=== PATIENT | male | born 1970 | race Caucasian/White ===

== ENCOUNTER 2024-04-26 11:27 | Emergency (ER) | payer OTHER, SELFPAY ==
[2024-04-26 12:02] VITALS: BP 131/82; PULSE 78; RESP 18; TEMP 36.3; O2SAT 97
--- OUTSIDE RECORDS SUMMARY | 2024-04-26 12:06 | XMS_ITS | Encounter Summary ---
Author Organization [facility] Address [address] [place] [address]. [place] [address] [place] [address] Care Team Providers Care Tyre Fitter Name Role Phone Terese Hathaway Primary Care Provider [phone] Vale Salmon RADIO PERFORMER- Primary Care Provider + Korin Monteiro MD Primary Care Provider [phone] IngridMilo Grady MD Primary Care Prov ider Encounter Details Date Type Department Care Team (Late st Contact Info) Description 03/11/2022 [employer] Message Enc [facility] Health Information Services [address] [place] [address] Aleah, [facility] Provider Pt Amendment Request Social History Tobacco Use Types Packs/Day Years Used Date Smoking Tobacco: Former Cigarettes Smokeless Tobacco: Never Alcohol Use Standard Drinks/Week Comments Yes 10 (1 standard drink = 0.6 oz pu re alcohol) occasional AUDIT-C Answer Date Recorded Frequency of Alcohol Consumption 2-3 times a wee k 03/04/2018 Average Number of Drinks 3 or 4 018 Frequency of Binge Drinking Not on file 02/20 PHQ-2 Answer Date Recorded PHQ-2 Score - If the patient scores above 3, please move on to questions 3-9 0 11/01/2021 Education Answer Date Recorded What is the highest level of school you have completed or the highest degree you have received? High school graduate 03/04/2018 Sex and Gender Information Value Date Recorded Sex Assigned at Male 03/04/2018 2:26 PM THERAPEUTIC ASSISTANT Legal Sex Male 4:33 PM CDT Gender Identity Male 03/04/2018 2:26 PM THERAPEUTIC ASSISTANT Sexual Orientation Straight 03/04/2018 2: 26 PM THERAPEUTIC ASSISTANT COVID-19 Exposure Response Date Recorded In the last 10 days, have yo u been in contact with someone who was confirmed or suspected to have Coronavirus/COVID-19? No / Unsure 03/03/2022 1:16 PM THERAPEUTIC ASSISTANT documented as of this encounter Plan of Treatment Upcoming Encounters Date Type Department Care Team (Late st Contact Info) Description 04/28/2024 7:20 AM THERAPEUTIC ASSISTANT Office Visit [facility] Family Medicine - [place] [address] [facility], [address] [place] [phone] Ingrid VIIMilo MD [facility], [address] [address] documented as of this encounter Visit Diagnoses Not on filedocumented in this encounter Additional Health Concerns Infection Onset Date Last Indicated Resolved Time COVID-19 Rule Out 12/10/2023 12/10/2023 12/10/2023 11:34 AM CDT Assessment Noted Time PHQ-9 Depression Total Score: 1 10/03/19 22 4:03 PM CDT documented as of this encounter Care Teams Tyre Fitter Relationship Specialty Start [place] [address] [place] [address] PCP - General PHYSICIAN SOD CUTTER 02/01/20 10/05/22 Vale Salmon, RADIO PERFORMER- [address], [address] [place] [address] PCP - General 10/06/22 02/09/23 [place] [address] [address], [address] [place], [place] [id number] PCP - General FAMILY PRACTICE 02/10/23 01/26/24 Ingrid SOPHIE, Milo Parada MD [address] [place] [address] PCP - General FAMILY PRACTICE 01/27/24 documented as of this encounter
--- OUTSIDE RECORDS SUMMARY | 2024-04-26 12:06 | XMS_ITS | Referral Summary ---
Author Organization [facility] Address [address] [place] [address] Care Team Providers Care Radiology Equipment Servicer Name Role Phone Johnnie Chun MD Primary Care Provider + Source Comments [facility],non-owned Affiliates and Associated Physician Practices is amultiple site organization consisting of ambulatory clinics and hospital sitesin [place], [place], [place] and [place]. This disclosure is being madepursuant to the Care Everywhere program and may not contain all information available regarding this patient. Last updated 17.[facility] Allergies No known active allergies Medications * Be aware that medications may not be up to date on this document. Alwaysverify current medications with the patient. Medication Sig Dispensed Refills Start Date End Date Status levocetirizine (XYZAL) 5 MG tablet Take 1 tablet by mouth once daily 30 tablet 2 12/23/2017 Active Social History Tobacco Use Types Packs/Day Years Used Date Smoking Tobacco: Never Smokeless Tobacco: Never Sex and Gender Information Value Date Recorded Sex Assigned at Not on file Gender Identity Not on file Sexual Orientation Not on file Last Filed Vital Signs Vital Sign Reading Time Taken Comments Blood Pressure 128/84 12/23/2017 9:41 AM CDT Pulse 79 12/23/2017 9:41 AM CDT Temperature 36.9 ??C (98.5 ??F) 12/23/2017 9:41 AM CD T Respiratory Rate 16 03/04/2017 6:43 PM NEWSPAPER LIBRARY MANAGER Oxygen Saturation 98% 12/23/2017 9:41 AM CDT Inhaled Oxygen Concentration - - Weight 113 kg (249 lb 1.6 oz) 12/23/2017 9:41 AM CDT Height 185.4 cm (6' 1 ) 12/23/2017 9:41 AM CDT Body Mass Index 32.86 12/23/2017 9:41 AM CDT Plan of Treatment Not on file Care Teams Radiology Equipment Servicer Relationship Specialty Start Date End Date Johnnie Chun MD PCP - General Internal Medicine 03/04/17
--- OUTSIDE RECORDS SUMMARY | 2024-04-26 12:06 | XMS_ITS | Continuity of Care Document ---
Author Organization [facility] Address [address] [place] [address] Phone Care Team Providers Care Rim Technician Name Role Phone Nuno Whitmore MD Unavailable Unavailabl e Allergies, Adverse Reactions, Alerts Substance Reaction Status Criticality No Known Allergies Active No Inform ation Medications Medication Instructions Dosage Effective Dates (start - stop) Status Comments cephalexin 500 mg capsule take 2 capsules by oral route 1 hour prior to procedure - Active lisinopril 10 mg tablet take 1 tablet by oral route every day 10 MG - Active hydrochlorothiazide 12.5 mg tablet take 1 tablet by oral route every day 12.5 MG - Active DIAZEPAM (unknown strength) Not Available - Active Procedures Procedure Date X-RAY HIP UNI W PELVIS 2-3 VIEWS 2022 OFFICE/OUTPATIENT VISIT EST X-RAY HIP UNI W PELVIS 2-3 VIEWS 2022 POSTOP FOLLOW-UP VISIT POSTOP FOLLOW-UP VISIT RADEX KNE 1/2 VIEWS X-RAY HIP UNI W PELVIS 2-3 VIEWS 2022 TOTAL HIP ARTHROPLASTY X-RAY HIP UNI W PELVIS 2-3 VIEWS 2022 OFFICE/OUTPATIENT VISIT NEW Advance Directives Directive Yes / No Effective Date File Name No Information Encounters Encounter Description Practice Location Reason(s) For Visit Diagnoses Date Provider Providers Copied on Encounter [facility], [address], [place], [address], [place] tel:[phone] [facility] No Information Dec-1 5-202 3 L'Hommedieu Seneca. [address], [place], [place], [id number]. tel:[phone] OFFICE/OUTPA TIENT VISIT EST [facility], [address] [facility] [address] [place] [address], [place], [address], [place] tel:[phone] [facility] Status post total replacement of left hip Nov- 3 L'Hommedieu Seneca. [address], [place], [place], [id number]. tel:[phone] Referring Provider: Terese Mi, [address], [place], [address] . tel:[phone] [facility], [address] [place] [place] [address], [place], [address], [place] tel:[phone] [facility] Status post total replacement of left hip Rogers- 3 L[address]Hommed[address] [place]. [address] , [place], [place], [address]. tel:[phone] Referring Provider: Terese Mi, [address], [place], [address] . tel:[phone] [facility], [address] [place] [place] [address], [place], [address], [place] tel:[phone] [facility] Status post total replacement of left hipBody mass index [BMI] 34.0-34.9, adult [address]. [address], [place], [place], [id number], [place]. tel:[phone] Referring Provider: Terese Mi, [address], [place], [address] . tel:[phone] [facility], [address] [facility] [address], [place], [address], [place] tel:[phone] [facility] Status post total replacement of left hipUnilateral primary osteoarthritis , left hipCongenital dysplasia of hip 3 No Information Referring Provider: Nuno vásquez, [address], [place], [address] . tel:[phone] [facility], [address], [place], [address], [place] tel:[phone] [facility] Primary osteoarthritis of left hipStatus post total replacement of left hip 3 Haim Reina. [address], [place], [place], [address]. tel:[phone] OFFICE/OUTPA TIENT VISIT NEW [facility], [address] [facility] [address] [facility] [address], [place], [address], [place] tel:[phone] [facility] Body mass index [BMI] 34.0-34.9, adultPain in left hipPrimary osteoarthritis of left hip 3 Haim Reina. [address], [place], [place], [address]. tel:[phone] Family History Family Member Type Diagnosis Age At Onset Mother Problem Hypertension Father Problem Cancer, prostate Payers Payer name Insurance type Covered green party ID Authoriza tion(s) No Information Social History Type Description Quantity Date Captured Comments Alcohol Use Details Unknown Caffeine Use Details Unknown Tobacco Use Status No Information Smoking Status No Information Sex Male Chief Complaint And Reason For Visit No Information Reason For Referral Reason For Referral No Information Plan Of Treatment Date Type Action Status Referral Ordered: X-RAY HIP UNI W PELVIS 2-3 VIEWS LT ordered Referral Ordered: RADEX KNE 1/2 VIEWS LT ordered Referral Ordered: ELECTROCARDIOGRAM COMPLETE ordered Referral Ordered: X-RAY EXAM CHEST 2 VIEWS ordered Referral Ordered: X-RAY HIP UNI W PELVIS 2-3 VIEWS LT hip ordered Future Order: Lab Order CBC With Differential/Platelet ([id number]), Ordered on: Ordered Future Order: Lab Order Comp. Me tabolic Panel ([id number]), Ordered on: Ordered Future Order: Lab Order PT and P TT ([id number]), Ordered on: Ordered History Of Present Illness Encounter Date Complaint History Of Prese nt Illness No Information Functional Status Date Functional Assessmen t No Information Instructions Date Instruction Additional Infor mation Giving encouragement to exercise Related to Body mass index [BMI] 34.0-34.9, adult Giving encouragement to exercise Related to Body mass index [BMI] 34.0-34.9, adult Assessments Type Assessment Date No Information Patient Care Teams Name Effective Dates (start - stop) Status Members No Information
--- OUTSIDE RECORDS SUMMARY | 2024-04-26 12:06 | XMS_ITS | Encounter Summary ---
Author Organization [facility] Address [facility] [facility] [place] [address] [place] [address] Care Team Providers Care Centura Technical Lead Senior Developer Name Role Phone Terese Hathaway Primary Care Provider [phone] Vale SalmonP- Primary Care Provider + Korin Monteiro MD Primary Care Provider [phone] IngridMilo Grady MD Primary Care Prov ider Encounter Details Date Type Department Care Team (Late st Contact Info) Description 08/27/2021 [employer] Message Enc [facility] Family & Internal Medicine [address] [phone] Aleah, [facility] Provider Appointment Social History Tobacco Use Types Packs/Day Years Used Date Smoking Tobacco: Former Cigarettes Smokeless Tobacco: Never Alcohol Use Standard Drinks/Week Comments Yes 0 (1 standard drink = 0.6 oz pur e alcohol) occasional AUDIT-C Answer Date Recorded Frequency of Alcohol Consumption 2-3 times a wee k 03/04/2018 Average Number of Drinks 3 or 4 018 Frequency of Binge Drinking Not on file 02/20 PHQ-2 Answer Date Recorded PHQ-2 Score - If the patient scores above 3, please move on to questions 3-9 0 01/30/2020 Education Answer Date Recorded What is the highest level of school you have completed or the highest degree you have received? High school graduate 03/04/2018 Sex and Gender Information Value Date Recorded Sex Assigned at Male 03/04/2018 2:26 PM LEASING AGENT Legal Sex Male 4:33 PM CDT Gender Identity Male 03/04/2018 2:26 PM LEASING AGENT Sexual Orientation Straight 03/04/2018 2: 26 PM LEASING AGENT documented as of this encounter Plan of Treatment Upcoming Encounters Date Type Department Care Team (Late st Contact Info) Description 04/28/2024 7:20 AM LEASING AGENT Office Visit [facility] Family Medicine - [address], [address] [place] [phone] Milo Negro MD [address] [place] [address] documented as of this encounter Visit Diagnoses Not on filedocumented in this encounter Additional Health Concerns Infection Onset Date Last Indicated Resolved Time COVID-19 Rule Out 12/10/2023 12/10/2023 12/10/2023 11:34 AM CDT documented as of this encounter Care Teams Centura Technical Lead Senior Developer Relationship Specialty Start [place] [address] [place] [address] PCP - General PHYSICIAN AIR TUCKER 02/01/20 10/05/22 Vale Salmon, [facility]- [address] [address], [address] [address] PCP - General 10/06/22 02/09/23 [place] [address] [address], [address] [address] PCP - General FAMILY PRACTICE 02/10/23 01/26/24 Milo Negro MD [address] [place] [address], [address] [address] PCP - General FAMILY PRACTICE 01/27/24 documented as of this encounter
--- OUTSIDE RECORDS SUMMARY | 2024-04-26 12:06 | XMS_ITS | Encounter Summary ---
Author Organization [facility] Address [address] [place] [address]. [place] [address] [place] [address] Care Team Providers Care High School Business Teacher Name Role Phone Korin Monteiro MD Primary Care Provider [phone] Ingrid Milo BARRIOS MD Primary Care Prov ider Reason for Referral * Surgical (Routine) - Closed Specialty Diagnoses / Procedures Referred By María amaya Referred To Contact GENERAL SURGERY Diagnoses Encounter for screening for malignant neoplasm of colon Procedures Case request operating room: COLONOSCOPY Jens Cardona DO [address] [place] [address] Phone: tel: fax: Referral ID Status Reason Start Date Expiration Date Visits Re quested Visits Authorized [id number] Closed 06/04/2023 06/03/2024 1 1 Encounter Details Date Type Department Care Team (Late st Contact Info) Description 06/04/2023 Prep for Procedure [facility] General Surgery - [place] [address], [address] [place] [address] Jens Cardona DO [address] [place] [address] Social History Tobacco Use Types Packs/Day Years Used Date Smoking Tobacco: Former Cigarettes Passive Smoke Exposure: Past Smokeless Tobacco: Never Comments:Former smoker; smok ed in high school less than 1/2 ppd Alcohol Use Standard Drinks/Week Comments Yes 5 (1 standard drink = 0.6 oz pur e alcohol) once weekly AUDIT-C Answer Date Recorded Frequency of Alcohol Consumption 2-3 times a wee k 03/04/2018 Average Number of Drinks 3 or 4 018 Frequency of Binge Drinking Not on file 02/20 PHQ-2 Answer Date Recorded Patient Health Questionnaire-2 Score 0 04/17/2023 Education Answer Date Recorded What is the highest level of school you have completed or the highest degree you have received? High school graduate 03/04/2018 Sex and Gender Information Value Date Recorded Sex Assigned at Male 03/04/2018 2:26 PM UPSETTER SETTER UP Legal Sex Male 4:33 PM CDT Gender Identity Male 03/04/2018 2:26 PM UPSETTER SETTER UP Sexual Orientation Straight 03/04/2018 2: 26 PM UPSETTER SETTER UP documented as of this encounter Plan of Treatment Upcoming Encounters Date Type Department Care Team (Late st Contact Info) Description 04/28/2024 7:20 AM UPSETTER SETTER UP Office Visit [facility] Family Medicine [address], [address] [phone] Ingrid VII, Milo Parada MD [address] [place] [address], [address] [address] Scheduled Orders Name Type Priority Associated Diagnoses Orde r Schedule Case request operating room: COLONOSCOPY Case Request Routine Encounter for screening for malignant neoplasm of colon Once for 1 Occurrences starting 07/29/2023 until 07/29/2023 documented as of this encounter Visit Diagnoses Diagnosis Encounter for screening for malignant neoplasm of colon- Primary Special screening for malignant neoplasms, colon documented in this encounter Additional Health Concerns Infection Onset Date Last Indicated Resolved Time COVID-19 Rule Out 12/10/2023 12/10/2023 12/10/2023 11:34 AM CDT Assessment Noted Time PHQ-9 Depression Total Score: 0 04/17/19 24 11:51 AM UPSETTER SETTER UP documented as of this encounter Care Teams High School Business Teacher Relationship Specialty Start Date End Date Korin Monteiro MD PCP - General FAMILY PRACTICE 02/10/23 01/26/24 Milo Negro MD [address] [place], [place] [address] PCP - General FAMILY PRACTICE 01/27/24 documented as of this encounter
--- OUTSIDE RECORDS SUMMARY | 2024-04-26 12:06 | XMS_ITS | Patient Health Summary ---
Author Organization [facility] Address [address] [place] [address] Care Team Providers Care Senior Designer Name Role Phone Johnnie Chun MD Primary Care Provider + Note from [facility],non-owned Affiliates and Associated Physician Practices is amultiple site organization consisting of ambulatory clinics and hospital sitesin [place], [place], [place] and [place]. This disclosure is being madepursuant to the Care Everywhere program and may not contain all information available regarding this patient. Last updated 17.[facility] Allergies No known active allergies Medications * Be aware that medications may not be up to date on this document. Alwaysverify current medications with the patient. * levocetirizine (XYZAL) 5 MG tablet(Started 12/23/2017) Take 1 tablet by mouth once daily 2 refills remaining Social History Tobacco Use Types Packs/Day Years [...] T Respiratory Rate 16 03/04/2017 6:43 PM COMMUNITY SERVICE MANAGER Oxygen Saturation 98% 12/23/2017 9:41 AM CDT Inhaled Oxygen Concentration - - Weight 113 kg (249 lb 1.6 oz) 12/23/2017 9:41 AM CDT Height 185.4 cm (6' 1 ) 12/23/2017 9:41 AM CDT Body Mass Index 32.86 12/23/2017 9:41 AM CDT Procedures * STREP A SCREEN - POINT OF CARE (AMB) STL(Performed 03/04/2017) Performed for Acute pharyngitis, unspecified etiology Results * STREP A SCREEN (03/04/2017) Strep A Rapid POCT Negative Negative Strep A Internal Control Present Lot # [id number] Expiration Date [id number] Throat ENTIRE THROAT (SURFACE REGION OF NECK) / Unknown 03/04/2017 Thomas Phelan PAINT MAKER-RUBBER PRINTING MACHINE OPERATOR LAB - POINT OF CARE ORDERABLES Care Teams Senior Designer Relationship Specialty Start Date End Date Johnnie Chun MD PCP - General Internal Medicine 03/04/17
--- OUTSIDE RECORDS SUMMARY | 2024-04-26 12:06 | XMS_ITS | Clinical Summary ---
Author Organization [facility] Medical Office Building Address [address] [place] [address] Care Team Providers Care Director International Name Role Phone Ananth Alvarado MD Unavailable [phone] Korin Monteiro MD Primary Care Provider [phone] Allergies No known active allergies Medications cholecalciferol (VITAMIN D-3) 25 mcg (1,000 unit) tabletIndicatio ns:Vitamin D Deficiency,supp lement Take 2 tablets (2,000 Units total) by mouth every morning Active hydroCHLOROthia zide (HYDRODIURIL) 12.5 mg tabletIndicatio ns:hypertension Take 1 tablet (12.5 mg total) by mouth every morning 2 Active lisinopriL (PRINIVIL,ZESTR IL) 10 mg tabletIndicatio ns:hypertension Take 1 tablet (10 mg total) by mouth every morning 2 Active acetaminophen (TYLENOL) 500 mg tablet Take 1,000 mg by mouth every 6 (six) hours as needed for pain Active ibuprofen (ADVIL,MOTRIN) 200 mg tab/cap Take 3 tablet/capsule (600 mg total) by mouth every 8 (eight) hours as needed for pain Active HYDROcodone-eric taminophen (NORCO) 5-325 mg per tabletIndicatio ns:Pain Take 1 tablet by mouth every 6 (six) hours as needed for pain 15 tablet 2 Active cyclobenzaprine (FLEXERIL) 5 mg tablet Take 5 mg by mouth 2 (two) times a day as needed for muscle spasms [address] (VOLTAREN) 75 mg EC tabletIndicatio ns:Osteoarthrit is,Tendonitis,f charissa Take 1 tablet (75 mg total) by mouth 2 (two) times a day 2 Active clobetasoL (TEMOVATE) 0.05 % cream as needed 3 Active diazePAM (VALIUM) 10 mg tablet 3 Active HYDROcodone-eric taminophen (NORCO) 5-325 mg per tabletIndicatio ns:Pain Take 1 tablet by mouth every 6 (six) hours as needed for pain 15 tablet 3 Active ofloxacin (FLOXIN) 0.3 % otic solution Administer 5 drops into the right ear daily 5 mL 2 3 Active tiZANidine (ZANAFLEX) 2 mg tablet 3 Active semaglutide (WEGOVY) 0.25 mg/0.5 mL auto-injector Inject 0.5 mL (0.25 mg total) under the skin once a week 3 Active oxyCODONE-aceta minophen (PERCOCET) 5-325 mg per tablet 3 Active aspirin 325 mg enteric coated tablet 3 Active buPROPion XL (WELLBUTRIN XL) 150 mg 24 hr tablet SIG one po qam. If tolerating, may increase to 2 pills (300mg) po qam after 2-4 weeks 4 Active naltrexone (DEPADE) 50 mg tablet SI/2 pill (25mg) po qam with the wellbutrin 4 Active Lomaira 8 mg tablet 1 4 Active ciprofloxacin-d exAMETHasone (CIPRODEX) otic suspension Administer 4 drops into the right ear 2 (two) times a day 7.5 mL 3 4 Active amoxicillin (AMOXIL) 875 mg tablet 4 Active methylPREDNISol one (MEDROL DOSEPACK) 4 mg Dosepack 4 Active Active Problems Problem Noted Date Diagnosed Date Congenital dysplasia of hip 01/28/2023 Surgical History Surgery Date Site/Laterality Comments TYMPANOPLASTY 03/23/1999 - 03/22/2000 Right MYRINGOTOMY W/ TUBES 03/23/1974 - 03/22/1975 Right multiple tubes since 4 years old TONSILLECTOMY AND ADENOIDECTOMY childhood EAR SURGERY 12/21/2021 - 01/20/2022 Right Medical History Medical History Date Comments Allergic rhinitis Hypertension Sleep apnea Family History Medical History Relation Name Comments Cancer Father Roger Bone Anesthesia problems Neg Hx Relation Name Status Comments Father Roger Bone Alive Mother Alive Social History Tobacco Use Types Packs/Day Years Used Date Smoking Tobacco: Never Smokeless Tobacco: Never AUDIT-C Answer Date Recorded Q1: How often do you have a drink containing alc ohol? 2-3 times a week 06/20/2022 Q2: How many drinks containi ng alcohol do you have on a typical day when you are drinking? 1 or 2 06/20/2022 Q3: How often do you have si x or more drinks on one occasion? Never 06/20/2022 Personal Safety Answer Date Recorded Have you ever been in or are you currently in a harmful physical or emotional relationship or is someone making you feel afraid or unsafe? Denies 06/20/2022 Sex and Gender Information Value Date Recorded Sex Assigned at Not on file Legal Sex Male 11:35 AM CDT Gender Identity Not on file Sexual Orientation Not on file Obstetrics History Last Filed Vital Signs Vital Sign Reading Time Taken Comments Blood Pressure 119/63 06/20/2022 9:15 AM CDT Pulse 67 06/20/2022 9:15 AM CDT Temperature 36.7 ??C (98.1 ??F) 06/20/2022 8:16 AM CD T Respiratory Rate 16 06/20/2022 9:15 AM CDT Oxygen Saturation 97% 06/20/2022 9:15 AM CDT Inhaled Oxygen Concentration - - Weight 116.2 kg (256 lb 1.6 oz) 06/20/2022 5:58 AM CDT Height 185.4 cm (6' 1 ) 06/20/2022 5:58 AM CDT Body Mass Index 33.79 06/20/2022 5:58 AM CDT Plan of Treatment Health Maintenance Due Date Last Done Comments Colon Cancer Screening-Colonoscopy 1969 Depression Screening 1969 Hepatitis C Screening 1969 Prostate Cancer Screening-PSA 1969 Hepatitis B Screening 1987 Regular Well Visit/Exam 18-64 1987 Zoster Vaccine (1 of 2) 2019 Influenza Vaccine (#1) 2023 DTaP/Tdap/Td Vaccine (3 - Td or Tdap) 03/28/2027 03/28/2017, 05/18/2016, 01/08/2011 Pneumococcal vaccine <65 Aged Out No longer eligible based on patient's age to complete this topic Medical Devices Implanted Type Area Religious Education Coordinator Device Identifier Shelf Expiration Date Model / Serial / Lot Implantech Alliedsil 3x2in Nonreinforced Permanent Implantable Thk.04in 700-40 - [id number] Implanted:Qty: 1 on 12/27/2021 by Hoang Garcia MD at [facility] Right: Ear Implantech [id number] 08/29/2026-40 / / [id number] [employer] Porp [place] Prosthesis Ossicular 655 - [id number] Implanted:Qty: 1 on 06/20/2022 by Hoang Garcia MD at [facility] Right: Ear [employer] [id number] 04/23/2027 655 / / [id number] Insurance [facility] CHOICE PLUS [facility] CHOICE PLUS Care Teams Director International Relationship Specialty Start Date End Date Korin Monteiro MD [address] [facility] [address] [place], [place] [id number] PCP - General Family Practice 11/09/23 Ananth Alvarado MD [facility] [place], [place] [id number] Referring Physician Otolaryngology 11/19/21
--- OUTSIDE RECORDS SUMMARY | 2024-04-26 12:06 | XMS_ITS | Encounter Summary ---
Author Organization [facility] Address [address] [place] [address]. [place] [address] [place] [address] Care Team Providers Care Security Attendant Name Role Phone Korin Monteiro MD Primary Care Provider Ingrid Milo BARRIOS MD Primary Care Prov ider Encounter Details Date Type Department Care Team (Late st Contact Info) Description 12/08/2023 TechLoaner Message Enc [facility] Family Medicine [facility] [address] [facility] [address], [address] [place] [id number] Doctolibantolin, [facility] Provider Michelle Social History Tobacco Use Types Packs/Day Years [...] Sex Assigned at Male 03/04/2018 2:26 PM CORPORATE SAFETY MANAGER Legal Sex Male 4:33 PM CDT Gender Identity Male 03/04/2018 2:26 PM CORPORATE SAFETY MANAGER Sexual Orientation Straight 03/04/2018 2: 26 PM CORPORATE SAFETY MANAGER documented as of this encounter Plan of Treatment Upcoming Encounters Date Type Department Care Team (Late st Contact Info) Description 04/28/2024 7:20 AM CORPORATE SAFETY MANAGER Office Visit [facility] Family Medicine - [address], [address] [place] [address] Milo Negro MD [address] [place] [address] documented as of this encounter Visit Diagnoses Not on filedocumented in this encounter Additional Health Concerns Infection Onset Date Last Indicated Resolved Time COVID-19 Rule Out 12/10/2023 12/10/2023 12/10/2023 11:34 AM CDT Assessment Noted Time PHQ-9 Depression Total Score: 0 04/17/19 11:51 AM CORPORATE SAFETY MANAGER documented as of this encounter Care Teams Security Attendant Relationship Specialty Start Date End Date Korin Monteiro MD PCP - General FAMILY PRACTICE 02/10/23 01/26/24 Milo Negro MD [address] [place] [address] PCP - General FAMILY PRACTICE 01/27/24 documented as of this encounter
--- OUTSIDE RECORDS SUMMARY | 2024-04-26 12:06 | XMS_ITS | Clinical Summary ---
Author Organization [facility] Address [address] [place] [address] Care Team Providers Care Compliance Investigator Name Role Phone Johnnie Chun MD Primary Care Provider + Source Comments [facility],non-owned Affiliates and Associated Physician Practices is amultiple site organization consisting of ambulatory clinics and hospital sitesin [place], [place], [place] and [place]. This disclosure is being madepursuant to the Care Everywhere program and may not contain all information available regarding this patient. Last updated 17.kajeet [facility] Allergies No known active allergies Medications * [...] T Respiratory Rate 16 03/04/2017 6:43 PM LIVING SPECIALIST Oxygen Saturation 98% 12/23/2017 9:41 AM CDT Inhaled Oxygen Concentration - - Weight 113 kg (249 lb 1.6 oz) 12/23/2017 9:41 AM CDT Height 185.4 cm (6' 1 ) 12/23/2017 9:41 AM CDT Body Mass Index 32.86 12/23/2017 9:41 AM CDT Plan of Treatment Health Maintenance Due Date Last Done Comments COLOGUARD (AGES 45-75) - COL ON CA SCREENING 1969 COLON MONITORING 1969 COLONOSCOPY - COLON CA SCREENING 1969 CT COLONOGRAPHY - COLON CA SCREENING 1969 Colorectal Cancer Screening 1969 FIT - COLON CA SCREENING 1969 FLEX SIG - COLON CA SCREENING 1969 LIPID TESTING 1969 HIV SCREENING 1984 HEPATITIS C SCREENING 03/31/1987 DTAP/TDAP/TD VACCINES (1 - Tdap) 1988 HEPATITIS B VACCINE (1 of 3 - 19+ 3-dose series) 1988 SCREENING FOR DIABETES 03/04/2017 PNEUMOCOCCAL VACCINE 50+ (1 of 1 - PCV) 2019 ZOSTER VACCINE (1 of 2) 2019 COVID-19 VACCINE (1 - 2023-2 5 season) 2023 INFLUENZA VACCINE (#1) 2023 DEPRESSION SCREENING 03/23/2024 HIB VACCINE Aged Out No longer eligi ble based on patient's age to complete this topic HPV VACCINE Aged Out No longer eligi ble based on patient's age to complete this topic MENINGOCOCCAL (Group B) VACCINE Aged Out No longer eligible based on patient's age to complete this topic MENINGOCOCCAL VACCINE Aged Out No chuyita ryley eligible based on patient's age to complete this topic PNEUMOCOCCAL VACCINE Aged Out No long er eligible based on patient's age to complete this topic Care Teams Compliance Investigator Relationship Specialty Start Date End Date Johnnie Chun MD PCP - General Internal Medicine 03/04/17
--- OUTSIDE RECORDS SUMMARY | 2024-04-26 12:06 | XMS_ITS | Referral Summary ---
Author Organization [facility] Medical Office Building Address [address] [place] [address] Care Team Providers Care Vision Rehabilitation Therapist Name Role Phone Ananth Alvarado MD Unavailable [phone] Korin Monteiro MD Primary Care Provider [phone] Allergies No known active allergies Medications cholecalciferol [...] Diagnosed Date Congenital dysplasia of hip 01/28/2023 Social History Tobacco Use Types Packs/Day Years [...] 06/20/2022 5:58 AM CDT Plan of Treatment Not on file Medical Devices Implanted Type Area Flyer Maker Device Identifier Shelf Expiration Date Model / Serial / Lot Implantech Alliedsil 3x2in Nonreinforced Permanent Implantable Thk.04in - [id number] Implanted:Qty: 1 on 12/27/2021 by Hoang Garcia MD at [facility] Right: Ear Implantech [id number] 08/29/2026 / / [id number] [employer] Porp [place] Prosthesis Ossicular 655 - [id number] Implanted:Qty: 1 on 06/20/2022 by Hoang Garcia MD at [facility] Right: Ear [employer] [id number] 04/23/2027 655 / / [id number] Insurance [facility] CHOICE PLUS Member Subscriber Plan / Payer (Ef fective 2021-Present) Name:Elijah Rey Relation to Subscriber:Self Name:Elijah Rey Payer ID:[id number] (NAIC) Type:[facility] H[facility]/PPO Address: [place] [id number] [facility] CHO[facility] PLUS Care Teams Vision Rehabilitation Therapist Relationship Specialty Start Date End Date Korin Monteiro MD [facility] [address] PCP - General Family Practice 11/09/23 Ananth Alvarado MD [address] [place] [address] Referring Physician Otolaryngology 11/19/21
--- OUTSIDE RECORDS SUMMARY | 2024-04-26 12:06 | XMS_ITS | Continuity of Care Document ---
Author Organization [facility] Address [address] [place] [address] Phone Care Team Providers Care Purler Name Role Phone Jens Saenz MD Unavailable Unavailable Medications Medication Instructions Dosage Effective Dates (start - stop) Status Comments Medrol (Cy) 4 mg Tabs in a Dose Pack take as directed. - Active Motrin 600 mg Tab take 1 tablet (600MG ) by oral route 3 times every day with food - Active Procedures Procedure Date Office/outpatient visit,est, mod 2011 Office/outpatient visit,est, mod 2011 Office/outpatient visit,est, mod 2011 X-ray exam of finger(s),2+ views 2011 Office/outpatient visit,est, mod 2010 X-ray exam of finger(s),2+ views 2010 Office/outpatient visit,est, mod 2010 Office/outpatient visit,est, low 2010 Office consultation, moderate 1 Advance Directives Directive Yes / No Effective Date File Name No Information Encounters Encounter Description Practice Location Reason(s) For Visit Diagnoses Date Provider Providers Copied on Encounter Office/outpat ient visit,est, mod [facility], [address] [place] [address], [id number], tel:[phone] [facility] No Information 2 Dany Colindres. [address] [place] [address], [id number] , . tel:[phone] Referring Provider: Gurwinder Franco, Was @[facility] But Not There Anymore, [place]. Office/outpat ient visit,est, [facility], [address] [place], [place], [id number], tel:[phone] [facility] No Information 2 Ambrose Jens. [address] [place] [address], [id number] , . tel:[phone] Referring Provider: Gurwinder Franco, Was @si But Not There Anymore, [place]. Office/outpat ient visit,est, [facility], [address] [place] [address], [id number], tel:[phone] [facility] No Information 2 Ambrose Jens. [address] [place] [address], [id number] , . tel:[phone] Referring Provider: Gurwinder Franco, Was @sih But Not There [place]ymore, [place]. Office/outpat ient visit,est, [facility], [address] [place] [address], [id number], tel:[phone] [facility] No Information 1 Ambrose Jens. [address] [place] [address], [id number] , [place]. tel:[phone] Referring Provider: Gurwinder Franco, Was @si But Not There [place]ymore, [place]. Office/outpat ient visit,est, [facility], [address] [place] [address], [id number], tel:[phone] [facility] No Information 1 Ambrose Jens. [address] [place] [address], [id number] , [place]. tel:[phone] Referring Provider: Gurwinder Franco, Was @si But Not There [place]ymore, [place]. Office/outpat ient visit,est, [facility], [address] [place] [address], [id number], tel:[phone] [facility] No Information 1 Ambrose Jens. [address] [place] [address], [id number] , . tel:[phone] Referring Provider: Gurwinder Franco, Was @[facility] But Not There Anymore, [place]. Office consultation, moderate [facility], [address], [place], [id number], tel:[phone] [facility] No Information 0 1 Ambrose Colindres. [address], [place], [id number] , . tel:[phone] Referring Provider: Gurwinder Franco, Was @[facility] But Not There Anymore, [place]. Family History Family Member Type Diagnosis Age At Onset No Information Payers Payer name Insurance type Covered democrat ID Authoriza tion(s) No Information Social History Type Description Quantity Date Captured Comments Sex Male Smoking Status No Information Chief Complaint And Reason For Visit No Information Reason For Referral Reason For Referral No Information History Of Present Illness Encounter Date Complaint History Of Prese nt Illness No Information Functional Status Date Functional Assessmen t No Information Instructions Date Instruction Additional Infor mation No Information Assessments Type Assessment Date No Information Patient Care Teams Name Effective Dates (start - stop) Status Members No Information
--- OUTSIDE RECORDS SUMMARY | 2024-04-26 12:06 | XMS_ITS | Encounter Summary ---
Author Organization [facility] Address [facility] [facility] [place] [address] [place] [address] Care Team Providers Care Production Cook Name Role Phone Terese Hathaway Primary Care Provider [phone] Vale Salmon [facility] Primary Care Provider + Korin Monteiro MD Primary Care Provider [phone] IngridMilo Grady MD Primary Care Prov ider Encounter Details Date Type Department Care Team (Late st Contact Info) Description 07/02/2022 MyChart Message Enc [facility] Family & Internal Medicine [facility] [address] [place] [address] [place] [address] [place] [address] [facility] CT Scans Social History Tobacco Use Types Packs/Day Years Used Date Smoking Tobacco: Former Cigarettes Passive Smoke Exposure: Past Smokeless Tobacco: Never Comments:Former smoker Alcohol Use Standard Drinks/Week Comments Yes 10 (1 standard drink = 0.6 oz pu re alcohol) occasional AUDIT-C Answer Date Recorded Frequency of Alcohol Consumption 2-3 times a wee k 03/04/2018 Average Number of Drinks 3 or 4 018 Frequency of Binge Drinking Not on file 02/20 PHQ-2 Answer Date Recorded Patient Health Questionnaire-2 Score 0 07/02/2022 Education Answer Date Recorded What is the highest level of school you have completed or the highest degree you have received? High school graduate 03/04/2018 Sex and Gender Information Value Date Recorded Sex Assigned at Male 03/04/2018 2:26 PM INDUCTION HEAT TREATER Legal Sex Male 4:33 PM CDT Gender Identity Male 03/04/2018 2:26 PM INDUCTION HEAT TREATER Sexual Orientation Straight 03/04/2018 2: 26 PM INDUCTION HEAT TREATER COVID-19 Exposure Response Date Recorded In the last 10 days, have yo u been in contact with someone who was confirmed or suspected to have Coronavirus/COVID-19? No / Unsure 07/02/2022 11:18 AM CDT documented as of this encounter Plan of Treatment Upcoming Encounters Date Type Department Care Team (Late st Contact Info) Description 04/28/2024 7:20 AM INDUCTION HEAT TREATER Office Visit [facility] Family Medicine [address], [address] [address] Ingrid VII, Milo Parada MD [address] [place] [address], [address] [address] documented as of this encounter Visit Diagnoses Not on filedocumented in this encounter Additional Health Concerns Infection Onset Date Last Indicated Resolved Time COVID-19 Rule Out 12/10/2023 12/10/2023 12/10/2023 11:34 AM CDT Assessment Noted Time PHQ-9 Depression Total Score: 1 10/03/19 22 4:03 PM CDT documented as of this encounter Care Teams Production Cook Relationship Specialty Start [place] [address] [facility] [place] [address] PCP - General PHYSICIAN MILLING MACHINE SET UP OPERATOR 02/01/20 10/05/22 Vale Salmon, GROCERY ASSOCIATE- [address] [address], [address] [address] PCP - General 10/06/22 02/09/23 [place] [address] [address], [address] [place] [address] PCP - General FAMILY PRACTICE 02/10/23 01/26/24 Milo Negro MD [address] [place] [address] PCP - General FAMILY PRACTICE 01/27/24 documented as of this encounter
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
--- OUTSIDE RECORDS SUMMARY | 2024-04-26 12:06 | XMS_ITS | Encounter Summary ---
Author Organization [facility] Address [facility] [address] [place] [address] Care Team Providers Care Dough Sheeter Name Role Phone Terese Hathaway Primary Care Provider [phone] [facility] Primary Care Provider + Korni Monteiro MD Primary Care Provider [phone] IngridMilo Grady MD Primary Care Prov ider Encounter Details Date Type Department Care Team (Late st Contact Info) Description 11/21/2021 MyChart Message Enc [facility] Family & Internal Medicine [facility] [address] [place] [phone] Terese Hathaway, MARY [id number] [place] [address] Social History Tobacco Use Types Packs/Day Years [...] Sex Assigned at Male 03/04/2018 2:26 PM CUSTOMER SOLUTIONS COORDINATOR Legal Sex Male 4:33 PM CDT Gender Identity Male 03/04/2018 2:26 PM CUSTOMER SOLUTIONS COORDINATOR Sexual Orientation Straight 03/04/2018 2: 26 PM CUSTOMER SOLUTIONS COORDINATOR COVID-19 Exposure Response Date Recorded In the last 10 days, have yo u been in contact with someone who was confirmed or suspected to have Coronavirus/COVID-19? No / Unsure 11/21/2021 6:58 AM CDT documented as of this encounter Plan of Treatment Upcoming Encounters Date Type Department Care Team (Late st Contact Info) Description 04/28/2024 7:20 AM CUSTOMER SOLUTIONS COORDINATOR Office Visit [facility] Family Medicine [address], [address] [phone] Ingrid VII, Milo Parada MD [address] [place] [address], [address] [address] documented as of this encounter Visit Diagnoses Not on filedocumented in this encounter Additional Health Concerns Infection Onset Date Last Indicated Resolved Time COVID-19 Rule Out 12/10/2023 12/10/2023 12/10/2023 11:34 AM CDT Assessment Noted Time PHQ-9 Depression Total Score: 1 10/03/19 22 4:03 PM CDT documented as of this encounter Care Teams Dough Sheeter Relationship Specialty Start [place] [address] [place] [address] PCP - General PHYSICIAN ANCIENT ART CURATOR 02/01/20 10/05/22 Vale Salmon, TELEGRAPH INSTALLER- [address] [address], [address] [address] PCP - General 10/06/22 02/09/23 [place] [address] [address], [address] [place] [address] PCP - General FAMILY PRACTICE 02/10/23 01/26/24 Milo Negro MD [address] [place] [address] PCP - General FAMILY PRACTICE 01/27/24 documented as of this encounter
--- OUTSIDE RECORDS SUMMARY | 2024-04-26 12:06 | XMS_ITS | Encounter Summary ---
Author Organization [facility] Address [facility] [place] [address] [place] [address] Care Team Providers Care Computer Numerical Control Programmer Name Role Phone Terese Hathaway Primary Care Provider [phone] Vale Salmon MATERIALS SCHEDULER- Primary Care Provider + Korin Monteiro MD Primary Care Provider [phone] IngridMilo Grady MD Primary Care Prov ider Encounter Details Date Type Department Care Team (Late st Contact Info) Description 06/16/2022 [employer] Message Enc [facility] Family & Internal Medicine [address] [address] [place], [facility] Provider Social History Tobacco Use Types Packs/Day Years Used Date Smoking Tobacco: Former Cigarettes Smokeless Tobacco: Never Comments:Former smoker Alcohol Use Standard Drinks/Week Comments Yes 10 (1 standard drink = 0.6 oz pu re alcohol) occasional AUDIT-C Answer Date Recorded Frequency of Alcohol Consumption 2-3 times a wee k 03/04/2018 Average Number of Drinks 3 or 4 018 Frequency of Binge Drinking Not on file 02/20 PHQ-2 Answer Date Recorded Patient Health Questionnaire-2 Score 0 05/26/2022 Education Answer Date Recorded What is the highest level of school you have completed or the highest degree you have received? High school graduate 03/04/2018 Sex and Gender Information Value Date Recorded Sex Assigned at Male 03/04/2018 2:26 PM POLYMERIZATION ENGINEER Legal Sex Male 4:33 PM CDT Gender Identity Male 03/04/2018 2:26 PM POLYMERIZATION ENGINEER Sexual Orientation Straight 03/04/2018 2: 26 PM POLYMERIZATION ENGINEER COVID-19 Exposure Response Date Recorded In the last 10 days, have yo u been in contact with someone who was confirmed or suspected to have Coronavirus/COVID-19? No / Unsure 05/26/2022 1:42 PM POLYMERIZATION ENGINEER documented as of this encounter Plan of Treatment Upcoming Encounters Date Type Department Care Team (Late st Contact Info) Description 04/28/2024 7:20 AM POLYMERIZATION ENGINEER Office Visit [facility] [facility] Family Medicine [address], [address] [phone] Ingrid Milo BARRIOS MD [address] [place] [address], [address] [address] documented as of this encounter Visit Diagnoses Not on filedocumented in this encounter Additional Health Concerns Infection Onset Date Last Indicated Resolved Time COVID-19 Rule Out 12/10/2023 12/10/2023 12/10/2023 11:34 AM CDT Assessment Noted Time PHQ-9 Depression Total Score: 1 10/03/19 22 4:03 PM CDT documented as of this encounter Care Teams Computer Numerical Control Programmer Relationship Specialty Start [place] [address] [place] [address] PCP - General PHYSICIAN BASKET TURNER 02/01/20 10/05/22 Vale Salmon, MATERIALS SCHEDULER- [address] [address], [address] [address] PCP - General 10/06/22 02/09/23 [place] [address] [address], [facility] [address] [place] [address] PCP - General FAMILY PRACTICE 02/10/23 01/26/24 Milo Negro MD [address] [place] [address] PCP - General FAMILY PRACTICE 01/27/24 documented as of this encounter
--- OUTSIDE RECORDS SUMMARY | 2024-04-26 12:07 | XMS_ITS | Continuity of Care Document ---
Author Organization [facility] Address [address] [place] [address] Phone Care Team Providers Care Cheesemaker Helper Name Role Phone Nuno Whitmore MD Unavailable [...] Providers Copied on Encounter [facility], [address], [place], [address], [place] tel:[phone] [facility] No Information Dec-1 5-202 3 L'Hommedieu Rhea. [address], [place], [place], [id number]. tel:[phone] OFFICE/OUTPA TIENT VISIT EST [facility], [address] [facility] [address] [address], [place], [address], [place] tel:[phone] [facility] Status post total replacement of left hip Nov- 3 L'Hommedieu Rhea. [address], [place], [place], [id number]. tel:[phone] Referring Provider: Terese Mi, [address], [place], [address] . tel:[phone] [facility], [address] [address], [place], [address], [place] tel:[phone] [facility] Status post total replacement of left hip Rogers- 3 L'Hommedieu Rhea. [address] , [place], [place], [id number]. tel:[phone] Referring Provider: Terese Mi, [address], [place], [address] . tel:[phone] [facility], [address] [address], [place], [address], [place] tel:[phone] [facility] Status post total replacement of left hipBody mass index [BMI] 34.0-34.9, adult 3 Eder Walton. [address] [facility] [address], [place], [place], [id number], [place]. tel:[phone] Referring Provider: Terese Mi, [address], [place], [address] . tel:[phone] [facility], [address], [place], [address], [place] tel:[phone] [facility] Status post total replacement of left hipUnilateral primary osteoarthritis , left hipCongenital dysplasia of hip 3 No Information Referring Provider: Nuno vásquez, [address], [place], [address] . tel:[phone] [facility], [address], [place], [address], [place] tel:[phone] [facility] Primary osteoarthritis of left hipStatus post total replacement of left hip 3 Haim Reina. [address], [place], [place], [id number]. tel:[phone] OFFICE/OUTPA TIENT VISIT NEW [facility], [address] [facility] [address] [address] [facility] [address], [place], [address], [place] tel:[phone] [facility] Body mass index [BMI] 34.0-34.9, adultPain in left hipPrimary osteoarthritis of left hip 3 Haim Reina. [address], [place], [place], [id number]. tel:[phone] Family History Family Member Type Diagnosis Age At Onset Mother Problem Hypertension Father Problem Cancer, prostate Payers Payer name Insurance type Covered libertarian ID Authoriza tion(s) No Information Social History [...] Future Order: Lab Order CBC With Differential/Platelet ([id number]), Ordered on: Ordered Future Order: Lab Order Comp. Me tabolic Panel ([id number]), Ordered on: Ordered Future Order: Lab Order PT and P TT ([id number]), Ordered on: Ordered History Of Present Illness [...]
--- OUTSIDE RECORDS SUMMARY | 2024-04-26 12:07 | XMS_ITS | Continuity of Care Document ---
Author Organization [facility] Address [address] [place] [address] Phone Care Team Providers Care Line Rider Name Role Phone Jens Saenz MD Unavailable [...] Copied on Encounter Office/outpat ient visit,est, mod [facility], [address] [place] [address], [id number], tel:[phone] [facility] No Information 2 Dany Colindres. [address] [place] [address], [id number] , . tel:[phone] Referring Provider: Gurwinder Franco, Was @[facility] But Not There Anymore, [place]. Office/outpat ient visit,est, [facility], [address], [place], [id number], tel:[phone] [facility] No Information 2 Ambrose Jens. [address] [place] [address], [id number] , . tel:[phone] Referring Provider: Gurwinder Franco, Was @si But Not There Anymore, [place]. Office/outpat ient visit,est, [facility], [address] [place] [address], [id number], tel:[phone] [facility] No Information 2 Ambrose Jens. [address] [place] [address], [id number] , . tel:[phone] Referring Provider: Gurwinder Franco, Was @sih But Not There Anymore, [place]. Office/outpat ient visit,est, [facility], [address] [place] [address], [id number], tel:[phone] [facility] No Information 1 Ambrose Jens. [address] [place] [address], [id number] , [place]. tel:[phone] Referring Provider: Gurwinder Franco, Was @si But Not There Anymore, [place]. Office/outpat ient visit,est, [facility], [address] [place] [address], [id number], tel:[phone] [facility] No Information 1 Ambrose Jens. [address] [place] [address], [id number] , [place]. tel:[phone] Referring Provider: Gurwinder Franco, Was @si But Not There Anymore, [place]. Office/outpat ient visit,est, [facility], [address] [place] [address], [id number], tel:[phone] [facility] No Information 1 Ambrose Jens. [address] [place] [address], [id number] , . tel:[phone] Referring Provider: Gurwinder Franco, Was @[facility] But Not There Anymore, [place]. Office consultation, moderate [facility], [address], [place], [id number], tel:[phone] [facility] No Information 0 1 Ambrose Colindres. [address], [place], [id number] , . tel:[phone] Referring Provider: Gurwinder Franco, Was @[facility] But Not There Anymore, [place]. Family History Family Member Type Diagnosis Age At Onset No Information Payers Payer name Insurance type Covered libertarian [...]
--- NOTE | 2024-04-26 12:57 | ED_ITS ---
HPI - URI/Sore Throat General Chief Complaint: Upper Respiratory Infection Stated Complaint: Cough Time Seen by Provider: 04/26/24 12:57 Source: patient, RN notes reviewed and old records reviewed Mode of arrival: ambulatory Limitations: no limitations History of Present Illness HPI Narrative: patient presents with complaints of cough and fatigue for about 1 week. He reports the cough is becoming increasingly productive. He has begun to notice some wheezing, especially at night. States that he is much more tired than normal, reports that he has already taken 2 naps today, typically does not nap at all. He denies any shortness of breath. He is not in any distress. He has been taking NyQuil with moderate relief. No other concerns or complaints at this time Related Data Allergies Allergy/AdvReac Type Severity Reaction Status Date / Time No Known Allergies Allergy Unverified 04/06/19 09:21 Review of Systems Review of Systems: All systems reviewed & are unremarkable except as noted in HPI and below Constitutional: Constitutional: Reports no additional constitutional complaints, Reports chills, Reports daytime sleepiness and Reports lethargy ENT: Reports system reviewed and no additional complaints, except as documented Cardiovascular: Cardiovascular: Reports no additional cardiovascular complaints Respiratory: Respiratory: Reports change in phlegm color, Reports chest congestion, Reports cough and Reports excessive phlegm production Gastrointestinal: Gastrointestinal: Reports no additional gastrointestinal complaints PMFSH Comments At the time of my signature, I reviewed and agree with the nursing past medical, surgical, social, and family history. There is no relevant family history pertinent to the patient complaint. Exam Const: General: cooperative, no acute distress, alert and awake Orientation/consciousness: oriented to person, oriented to place and oriented to time HENMT: Head: normal to inspection Ears: TM's normal bilaterally Mouth: Yes moist mucous membranes Resp: Effort & Inspection: normal respiratory effort and able to speak in complete sentences Auscultation: clear to auscultation bilaterally, no crackles, no rales, no rhonchi, wheezes anterior ( scattered, mild) and diminished lung sounds bilateral in the lower lung parkinson Cardio: Palpation: normal PMI Rate: regular rate Rhythm: regular rhythm Heart sounds: S1 normal heart sound present and S2 normal heart sound present Neuro: General: oriented to person, oriented to place and oriented to time Cranial nerves: Yes CN's II-XII intact bilaterally Psych: Appearance: grossly normal Thought process: Normal thought process present Insight: Good insight present (Psych) Judgement: Good judgement present (Psych) Course Course Level of Care: Express Care Visit Vital Signs Vital signs: Vital Signs Temperature 97.3 F L 04/26/24 12:02 Pulse Rate 78 04/26/24 12:02 Respiratory Rate 18 04/26/24 12:02 Blood Pressure 131/82 04/26/24 12:02 Pulse Oximetry 97 04/26/24 12:02 Oxygen Delivery Room Air 04/26/24 12:02 Temperature 97.3 F L 04/26/24 12:02 Pulse Rate 78 04/26/24 12:02 Respiratory Rate 18 04/26/24 12:02 Blood Pressure 131/82 04/26/24 12:02 Pulse Oximetry 97 04/26/24 12:02 Oxygen Delivery Room Air 04/26/24 12:02 Reviewed MDM - URI/Sore Throat MDM Narrative Medical decision making narrative: history and exam consistent with bronchitis versus atypical pneumonia. Will start prednisone, Augmentin with a sitter my sent for added anti-inflammatory affects. Bronchodilator is needed. Patient declines need for work note. Discharge instructions reviewed with patient, as well as provided in writing per nursing staff. The instructions also include specific and strict return/GO TO THE ER as well as f/u information. All questions have been answered, and the patient deny any further questions with discharge and discharge plan. Some parts of this dictation were generated by voice recognition software and may contain typographical and/or grammatical inaccuracies. Differential Diagnosis Differential diagnosis: Likely upper respiratory infection, viral infection, bronchitis and other (Atypical pneumonia) Medical Records Attestation: I reviewed the patient's medical records. Discharge Plan Discharge Clinical Impression: Bronchitis Patient Disposition: Home, Self-Care Condition: Stable Instructions: Antibiotic Form, Acute Bronchitis (ED) Additional Instructions: Take medications as prescribed. Follow with primary care provider. Emergency department for any new or worsening symptoms Patient Language: Pakistani Prescriptions: New azithromycin 250 mg tablet See Rx Instructions .ROUTE .COMPLEX Qty: 6 0RF Rx Instructions: For 250 mg dose pack: take 500 mg today (day 1), then 250 mg for 4 days (days 2-5) prednisone 50 mg tablet 50 mg PO DAILY Qty: 5 0RF albuterol sulfate [Ventolin HFA] 90 mcg/actuation HFA aerosol inhaler 2 puff inhalation QID PRN (Reason: shortness of breath or wheezing) Qty: 8.5 0RF Follow-up/Referrals: PHYSICIAN,SALES ENGINEER ENGINEERED PRODUCTS [Primary Care Provider] - Time of Disposition: 13:20
== END 2024-04-26 13:26 | disposition home or self-care (01) ==
PROVIDERS: Emergency Provider Nurse Practitioner Family
DX: J40 Bronchitis, not specified as acute or chronic (principal); I10 Essential (primary) hypertension
CPT/HCPCS: 99203; G0463

== ENCOUNTER 2024-05-21 15:36 | Emergency (ER) | payer OTHER, SELFPAY ==
[2024-05-21 15:49] VITALS: BP 123/73; PULSE 67; RESP 18; TEMP 36.7; O2SAT 96
--- NOTE | 2024-05-21 15:54 | ED.URI ---
HPI - URI/Sore Throat General Chief Complaint: Upper Respiratory Infection Stated Complaint: still feeling ill after taking meds Time Seen by Provider: 05/21/24 15:54 Source: patient Mode of arrival: ambulatory Limitations: no limitations History of Present Illness HPI Narrative: 54-year-old male presented for complaint of a persistent cough for 1 month. He was seen on 04/26/2024 and prescribed azithromycin and prednisone. 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 He denies associated shortness of breath, wheezing, nausea, vomiting, diarrhea, fatigue, fevers. Not taking anything [id number] for symptoms. Related Data Home Medications ?Medication ?Instructions ?Recorded ?Confirmed ?Last Taken ?Type hydrochlorothiazide 12.5 mg tablet mg 05/21/24 Unknown History lisinopril 10 mg tablet mg 05/21/24 Unknown History Allergies Allergy/AdvReac Type Severity Reaction Status Date / Time No Known Allergies Allergy Verified 05/21/24 15:51 Review of Systems Review of Systems: ROS per HPI All systems reviewed & are unremarkable except as noted in HPI and below PMFSH Comments At time of signature, I have reviewed and agree with nursing past medical, surgical, social and family history unless otherwise noted. Please see nursing chart for further information. There is no relevant family history pertinent to the presenting complaint Exam Narrative: GENERAL: Well-appearing, in no acute distress. EYES: EOMI. No redness or drainage. Conjunctivae normal. ENT: Mucous membranes pink and moist. No rhinorrhea. TMs normal bilaterally. Throat normal. Uvula midline. NECK: Normal AROM. Supple. CHEST: No respiratory distress. Lungs clear to all parkinson. HEART: Regular rate and rhythm. No murmur appreciated. SKIN: Warm, dry, no rash. Capillary refill normal. Normal skin turgor. NEURO: Alert and oriented x3. Gait steady. PSYCH: Normal affect. Course Course Emergency Course: Patient is aware of diagnosis, understands and agrees to treatment plan. Anticipatory guidance given. Patient agrees to follow-up as directed and is aware of reasons to seek care at the emergency department. Portions of this record may have been created with voice recognition software Level of Care: Express Care Visit Vital Signs Vital signs: Vital Signs Temperature 98.1 F 05/21/24 15:49 Pulse Rate 67 05/21/24 15:49 Respiratory Rate 18 05/21/24 15:49 Blood Pressure 123/73 05/21/24 15:49 Pulse Oximetry 96 05/21/24 15:49 Oxygen Delivery Room Air 05/21/24 15:49 Temperature 98.1 F 05/21/24 15:49 Pulse Rate 67 05/21/24 15:49 Respiratory Rate 18 05/21/24 15:49 Blood Pressure 123/73 05/21/24 15:49 Pulse Oximetry 96 05/21/24 15:49 Oxygen Delivery Room Air 05/21/24 15:49 MDM - URI/Sore Throat MDM Narrative Medical decision making narrative: Discussed physical exam findings, another course of steroid and benzonatate to help with the cough. Advised supportive measures and signs/symptoms to go to the ER. Pt is appropriate for outpt treatment and f/u. Differential Diagnosis Differential diagnosis: Likely viral infection and bronchitis Discharge Plan Discharge Clinical Impression: Bronchitis Patient Disposition: Home, Self-Care Condition: Stable Instructions: Antibiotic Form, Acute Cough (ED) Additional Instructions: Take medication as directed Recommend Zyrtec (or Claritin/Anju) over the counter Cough syrup may cause drowsiness; avoid driving or take it at night time. (Delysm, Robitussin, or if you have hypertension take Coricidin HBP) Tylenol every 8 hours as needed for pain rest, fluids, and increase humidity of the air at home. Follow up with your primary care provider as needed in 1 week Go to the ER for worsening symptoms or concerns Patient Language: American Prescriptions: New benzonatate 200 mg capsule 200 mg PO TID PRN (Reason: cough) Qty: 20 0RF prednisone 50 mg tablet 50 mg PO DAILY Qty: 5 0RF No Action albuterol sulfate [Ventolin HFA] 90 mcg/actuation HFA aerosol inhaler 2 puff inhalation QID PRN (Reason: shortness of breath or wheezing) Qty: 8.5 0RF lisinopril 10 mg tablet hydrochlorothiazide 12.5 mg tablet Follow-up/Referrals: UNKNOWN,DOCTOR [Primary Care Provider] - Time of Disposition: 16:08
== END 2024-05-21 16:10 | disposition home or self-care (01) ==
PROVIDERS: Emergency Provider Nurse Practitioner Family
DX: J40 Bronchitis, not specified as acute or chronic (principal); I10 Essential (primary) hypertension; Z96.642 Presence of left artificial hip joint
CPT/HCPCS: 99213; G0463

== ENCOUNTER 2024-07-15 02:50 | Emergency (ER) | payer OTHER, SELFPAY ==
--- NOTE | ~2024-07-15 | CT_ITS ---
Non-contrast CT scan of the Abdomen and Pelvis Clinical indication: Right flank pain Technique: 2.5 mm axial scans were obtained through the abdomen and pelvis without intravenous or or al contrast. Dose reduction technique was used on this scan by utilizing automated exposure control a nd iterative reconstruction technique. The dose-length product (DLP) was 1790.60 mGy-cm. Findings: Images through the lung bases reveal no abnormalities. There is a punctate stone at the left UVJ with mild left hydroureteronephrosis. There are punctate no nobstructing additional bilateral renal stones. No right ureteral stone or right hydronephrosis. The liver, spleen, gallbladder, and adrenals appear normal. 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 There is no aortic aneurysm. There is no evidence of bowel obstruction. Images through the pelvis were performed. There is no evidence of ascites or lymphadenopathy. Urinary bladder unremarkable. No pelvic mass seen. Impression: Punctate left UVJ stone with mild left hydroureteronephrosis. Additional punctate nonobstructing stones. Reviewed, dictated and finalized at [facility]. Impression: Punctate left UVJ stone with mild left hydroureteronephrosis. Additional punctate nonobstructing stones.
--- OUTSIDE RECORDS SUMMARY | 2024-07-15 02:53 | XMS_ITS | Encounter Summary ---
Author Organization [facility] Address [address] [place] [address] Care Team Providers Care Produce Clerk Name Role Phone Korin Monteiro MD Primary Care Provider Ingrid Milo BARRIOS MD Primary Care Prov ider Encounter Details Date Type Department Care Team (Late st Contact Info) Description 12/08/2023 [facility] Message Enc [facility] Medical Group Family Medicine [facility] [address], [address] [place] [phone] [place], [facility] Provider Michelle Social History Tobacco Use Types [...] Sex Assigned at Male 03/04/2018 2:26 PM QUALITY CONTROLLER Legal Sex Male 4:33 PM CDT Gender Identity Male 03/04/2018 2:26 PM QUALITY CONTROLLER Sexual Orientation Straight 03/04/2018 2: 26 PM QUALITY CONTROLLER documented as of this encounter Plan of Treatment Upcoming Encounters Date Type Department Care Team (Late st Contact Info) Description 09/26/2024 7:20 AM CDT Office Visit [facility] Medical Group Family Medicine - [place] [address], [address] [place] [phone] Milo Negro MD [address] [place] [address], [address] [phone] documented as of this encounter Visit Diagnoses Not on filedocumented in this encounter Additional Health Concerns Infection Onset Date Last Indicated Resolved Time COVID-19 Rule Out 12/10/2023 12/10/2023 12/10/2023 11:34 AM CDT Assessment Noted Time PHQ-9 Depression Total Score: 0 04/17/19 11:51 AM QUALITY CONTROLLER documented as of this encounter Care Teams Produce Clerk Relationship Specialty Start Date End Date Korin Monteiro MD PCP - General FAMILY PRACTICE 02/10/23 01/26/24 Milo Negro MD [address] [place] [id number] PCP - General FAMILY PRACTICE 01/27/24 documented as of this encounter
--- OUTSIDE RECORDS SUMMARY | 2024-07-15 02:53 | XMS_ITS | Encounter Summary ---
Author Organization [facility] Address [facility] [place] [address] Care Team Providers Care Gas Turbine Mechanic Name Role Phone Terese Hathaway Primary Care Provider [phone] [facility] + Korin Monteiro MD Primary Care Provider [phone] IngridMilo Grady MD Primary Care Prov ider Encounter Details Date Type Department Care Team (Late st Contact Info) Description 03/11/2022 [employer] Message Enc [facility] [address] [place] [address] [place], [facility] Provider Pt Amendment Request Social History Tobacco [...] Sex Assigned at Male 03/04/2018 2:26 PM SENIOR PRODUCTION PLANNER Legal Sex Male 4:33 PM CDT Gender Identity Male 03/04/2018 2:26 PM SENIOR PRODUCTION PLANNER Sexual Orientation Straight 03/04/2018 2: 26 PM SENIOR PRODUCTION PLANNER COVID-19 Exposure Response Date Recorded In the last 10 days, have yo u been in contact with someone who was confirmed or suspected to have Coronavirus/COVID-19? No / Unsure 03/03/2022 1:16 PM SENIOR PRODUCTION PLANNER documented as of this encounter Plan of Treatment Upcoming Encounters Date Type Department Care Team (Late st Contact Info) Description 09/26/2024 7:20 AM CDT Office Visit [facility] Medical [facility] Family Medicine [address], [address] [phone] Ingrid Milo BARRIOS MD [address] [place] [address], [address] [address] documented as of this encounter Visit Diagnoses Not on filedocumented in this encounter Additional Health Concerns Infection Onset Date Last Indicated Resolved Time COVID-19 Rule Out 12/10/2023 12/10/2023 12/10/2023 11:34 AM CDT Assessment Noted Time PHQ-9 Depression Total Score: 1 10/03/19 22 4:03 PM CDT documented as of this encounter Care Teams Gas Turbine Mechanic Relationship Specialty [place] [address] [place] [address] PCP - General PHYSICIAN COASTAL/HARBOR DEFENSE OFFICER 02/01/20 10/05/22 Vale Salmon, RESOLUTION ANALYST- [address] [address], [address] [address] PCP - General 10/06/22 02/09/23 [place] [address] [address], [address] [place] [address] PCP - General FAMILY PRACTICE 02/10/23 01/26/24 Milo Negro MD [address] [place] [address] PCP - General FAMILY PRACTICE 01/27/24 documented as of this encounter
--- OUTSIDE RECORDS SUMMARY | 2024-07-15 02:53 | XMS_ITS | Referral Summary ---
Author Organization [facility] Building Address [address] [place] [address] Care Team Providers Care Boilermaker Welder Name Role Phone Ananth Alvarado MD Unavailable [phone] Korin Monteiro MD Primary Care Provider [phone] Allergies No known active allergies Medications cholecalciferol [...] 67 06/20/2022 9:15 AM CDT Temperature 36.7 C (98.1 F) 06/20/2022 8:16 AM CDT Respiratory Rate 16 06/20/2022 9:15 AM CDT Oxygen Saturation 97% 06/20/2022 9:15 AM CDT Inhaled Oxygen Concentration - - Weight 116.2 kg (256 lb 1.6 oz) 06/20/2022 5:58 AM CDT Height 185.4 cm (6' 1 ) 06/20/2022 5:58 AM CDT Body Mass Index 33.79 06/20/2022 5:58 AM CDT Plan of Treatment Not on file Medical Devices Implanted Type Area Records And Information Manager Device Identifier Shelf Expiration Date Model / Serial / Lot Implantech Alliedsil 3x2in Nonreinforced Permanent Implantable Thk.04in - [id number] Implanted:Qty: 1 on 12/27/2021 by Hoang Garcia MD at [facility] Right: Ear Implantech [id number] 08/29/2026 / / [id number] [facility] Porp [place] Prosthesis Ossicular 655 - [id number] Implanted:Qty: 1 on 06/20/2022 by Hoang Garcia MD at [facility] Right: Ear [employer] [id number] 04/23/2027 655 / / [id number] Insurance [facility] H[facility]/PPO Address: [place] [id number] [facility] H[facility]/PPO Address: [address] [address] Care Teams Boilermaker Welder Relationship Specialty Start Date End Date Korin Monteiro MD [address] [place] [address] PCP - General Family Practice 11/09/23 Ananth Alvarado MD [address] [place] [address] Referring Physician Otolaryngology 11/19/21
--- OUTSIDE RECORDS SUMMARY | 2024-07-15 02:53 | XMS_ITS | Clinical Summary ---
Author Organization [facility] [employer] Address [address] [place] [address] Care Team Providers Care Battery Assembler Dry Cell Name Role Phone Johnnie Chun MD Primary Care Provider + Source Comments [facility] [employer],non-owned Affiliates and Associated Physician Practices is amultiple site organization consisting of ambulatory clinics and hospital sitesin [place], [place], [place] and [place]. This disclosure is being madepursuant to the Care Everywhere program and may not contain all information available regarding this patient. Last updated [employer] Allergies No known active allergies Medications * Be aware that medications may not be up to date on this document. Alwaysverify current medications with the patient. levocetirizine (XYZAL) 5 MG tablet Take 1 tablet by mouth once daily 30 tablet 2 12/23/2017 Active Social History Tobacco Use Types Packs/Day Years Used Date Smoking Tobacco: Never Smokeless Tobacco: Never Sex and Gender Information Value Date Recorded Sex Assigned at Not on file Legal Sex Male 1:14 PM PAIN MEDICINE PHYSICIAN Gender Identity Not on file Sexual Orientation Not on file Last Filed Vital Signs Vital Sign Reading Time Taken Comments Blood Pressure 128/84 12/23/2017 9:41 AM CDT Pulse 79 12/23/2017 9:41 AM CDT Temperature 36.9 C (98.5 F) 12/23/2017 9:41 AM CDT Respiratory Rate 16 03/04/2017 6:43 PM PAIN MEDICINE PHYSICIAN Oxygen Saturation 98% 12/23/2017 9:41 AM CDT [...] VACCINE (1 - 2023-2 5 season) 2023 DEPRESSION SCREENING 03/23/2024 INFLUENZA VACCINE (Season Ended) 2024 HIB VACCINE Aged Out No longer eligi ble based on patient's age to complete this topic HPV VACCINE Aged Out No longer eligi ble based on patient's age to complete this topic MENINGOCOCCAL (Group B) VACC INE SHARED DECISION-MAKING Aged Out No longer eligibl e based on patient's age to complete this topic MENINGOCOCCAL GROUPS A/C/Y/W VACCINE Aged Out No longer eligible b ased on patient's age to complete this topic Insurance [facility] Care Teams Battery Assembler Dry Cell Relationship Specialty Start Date End Date Johnnie Chun MD PCP - General Internal Medicine 03/04/17
--- OUTSIDE RECORDS SUMMARY | 2024-07-15 02:53 | XMS_ITS | Clinical Summary ---
Author Organization [facility] Address [address] [place] [address] Care Team Providers Care Management Lead Name Role Phone Ananth Alvarado MD Unavailable [phone] Korin Monteiro MD Primary Care Provider [phone] Allergies No known active allergies Medications cholecalciferol [...] Vaccine (1 of 2) 2019 Influenza Vaccine (Season Ended) 2024 DTaP/Tdap/Td Vaccine (3 - Td or Tdap) 03/28/2027 03/28/2017, 05/18/2016, 01/08/2011 Pneumococcal vaccine <65 Aged Out No longer eligible based on patient's age to complete this topic Medical Devices Implanted Type Area Control Panel Tester Device Identifier Shelf Expiration Date Model / Serial / Lot Implantech Alliedsil 3x2in Nonreinforced Permanent Implantable Thk.04in - - [id number] Implanted:Qty: 1 on 12/27/2021 by Hoang Garcia MD at [facility] Right: Ear Implantech [id number] 08/29/2026-40 / / [id number] [employer] Porp Whitney Prosthesis Ossicular 655 - [id number] Implanted:Qty: 1 on 06/20/2022 by Hoang Garcia MD at [facility] Right: Ear [employer] [id number] 04/23/2027 655 / / [id number] [facility] PL[facility] Care Teams Management Lead Relationship Specialty Start Date End Date Korin Monteiro MD [address] [facility] [address] [place] [address] PCP - General Family Practice 11/09/23 Ananth Alvarado MD [address] [place] [address] Referring Physician Otolaryngology 11/19/21
--- OUTSIDE RECORDS SUMMARY | 2024-07-15 02:53 | XMS_ITS | Encounter Summary ---
Author Organization [facility] Address [address] [place] [address] Care Team Providers Care Road Consultant Name Role Phone Korin Monteiro MD Primary Care Provider [phone] Ingrid Milo BARRIOS MD Primary Care Prov ider Reason for Referral * Surgical (Routine) - Closed Specialty Diagnoses / Procedures Referred By María amaya Referred To Contact GENERAL SURGERY Diagnoses Encounter for screening for malignant neoplasm of colon Procedures Case request operating room: COLONOSCOPY Jens Cardona DO [address] [place] [address] Phone: tel: fax: Referral ID Status Reason Start Date Expiration Date Visits Re quested Visits Authorized [id number] Closed 06/04/2023 06/03/2024 1 1 Encounter Details Date Type Department Care Team (Late st Contact Info) Description 06/04/2023 Prep for Procedure [facility] General Surgery - [address], [address] [place] [address] Jens Cardona DO [address] [place] [address] Social History Tobacco Use Types Packs/Day [...] Sex Assigned at Male 03/04/2018 2:26 PM PIN PUSHER Legal Sex Male 4:33 PM CDT Gender Identity Male 03/04/2018 2:26 PM PIN PUSHER Sexual Orientation Straight 03/04/2018 2: 26 PM PIN PUSHER documented as of this encounter Plan of Treatment Upcoming Encounters Date Type Department Care Team (Late st Contact Info) Description 09/26/2024 7:20 AM CDT Office Visit [facility] Medical Group Family Medicine - [address], [address] [place] [phone] Ingrid VII, Milo Parada MD [address] [place] [address], [address] [address] Scheduled Orders Name Type Priority Associated Diagnoses [...] Depression Total Score: 0 04/17/19 11:51 AM PIN PUSHER documented as of this encounter Care Teams Road Consultant Relationship Specialty Start Date End Date Korin Monteiro MD PCP - General FAMILY PRACTICE 02/10/23 01/26/24 Milo Negro MD [address] [place], [place] [id number] PCP - General FAMILY PRACTICE 01/27/24 documented as of this encounter
--- OUTSIDE RECORDS SUMMARY | 2024-07-15 02:53 | XMS_ITS | Encounter Summary ---
Author Organization [facility] Address Formerly [facility] [place] [address] Care Team Providers Care Stogy Roller Name Role Phone Terese Hathaway Primary Care Provider [phone] Vale SalmonP- Primary Care Provider + Korin Monteiro MD Primary Care Provider [phone] IngridMilo Grady MD Primary Care Prov ider Encounter Details Date Type Department Care Team (Late st Contact Info) Description 08/27/2021 [email or web address] Message Enc [facility] Medical Group Family & Internal Medicine [address] [address] Aleah, [facility] Provider Appointment Social History Tobacco Use Types [...] Sex Assigned at Male 03/04/2018 2:26 PM INFORMATION SYSTEMS CONSULTANT Legal Sex Male 4:33 PM CDT Gender Identity Male 03/04/2018 2:26 PM INFORMATION SYSTEMS CONSULTANT Sexual Orientation Straight 03/04/2018 2: 26 PM INFORMATION SYSTEMS CONSULTANT documented as of this encounter Plan of Treatment Upcoming Encounters Date Type Department Care Team (Late st Contact Info) Description 09/26/2024 7:20 AM CDT Office Visit [facility] Group Family Medicine - [address], [address] [place] [address] Milo Negro MD [address] [place] [address] documented as of this encounter Visit Diagnoses Not on filedocumented in this encounter Additional Health Concerns Infection Onset Date Last Indicated Resolved Time COVID-19 Rule Out 12/10/2023 12/10/2023 12/10/2023 11:34 AM CDT documented as of this encounter Care Teams Stogy Roller Relationship Specialty Start [place] [address] [place] [address] PCP - General PHYSICIAN TERRITORY SALES EXECUTIVE 02/01/20 10/05/22 Vale Salmon, [facility]- [address] [address], [address] [address] PCP - General 10/06/22 02/09/23 [place] [address] [address], [address] [address] PCP - General FAMILY PRACTICE 02/10/23 01/26/24 Milo Negro MD [address] [place] [address], [address] [address] PCP - General FAMILY PRACTICE 01/27/24 documented as of this encounter
--- OUTSIDE RECORDS SUMMARY | 2024-07-15 02:53 | XMS_ITS | Continuity of Care Document ---
Author Organization [facility] Address [address] [place] [address] Phone Care Team Providers Care Head Scorer Name Role Phone Nuno Whitmore MD Unavailable Unavailabl e Allergies, Adverse Reactions, Alerts Substance Reaction Status Criticality No Known Allergies Active No Inform ation Medications Medication Instructions Dosage Effective Dates (start - stop) Status Comments cephalexin 500 mg capsule take 2 capsules by oral route 1 hour prior to procedure - Active DIAZEPAM (unknown strength) Not Available - Active hydrochlorothiazide 12.5 mg tablet take 1 tablet by oral route every day 12.5 MG - Active lisinopril 10 mg tablet take 1 tablet by oral route every day 10 MG - Active Procedures Procedure Date X-RAY HIP [...] Providers Copied on Encounter [facility], [address], [place], [address], [place] tel:[phone] [facility] No Information Dec-1 5-202 3 L'Hom[address] [place]. [address], [place], [place], [id number]. tel:[phone] OFFICE/OUTPA TIENT VISIT EST [facility], [address] [facility] [address] [address], [place], [address], [place] tel:[phone] [facility] Status post total replacement of left hip Nov- 3 L'Hommedieu [place]. [address], [place], [place], [id number]. tel:[phone] Referring Provider: Terese Mi, [address], [place], [address] . tel:[phone] [facility], [address] [address], [place], [address], [place] tel:[phone] [facility] Status post total replacement of left hip Rogers- 3 [address]Hom[address] [place]. [address] , [place], [place], [id number]. tel:[phone] Referring Provider: Terese Mi, [address], [place], [address] . tel:[phone] [facility], [address] [address], [place], [address], [place] tel:[phone] [facility] Status post total replacement of left hipBody mass index [BMI] 34.0-34.9, adult 3 Eder [place]. [address] [facility] [address], [place], [place], [id number], [place]. tel:[phone] Referring Provider: Terese Mi, [address], [place], [address] . tel:[phone] [facility], [address] [facility] [address], [place], [address], [place] tel:[phone] [facility] Status post total replacement of left hipUnilateral primary osteoarthritis , left hipCongenital dysplasia of hip 3 No Information Referring Provider: Nuno vásquez, [address], [place], [address] . tel:[phone] [facility], [address], [place], [address], [place] tel:[phone] [facility] Primary osteoarthritis of left hipStatus post total replacement of left hip 3 Haim Reina. [address], [place], [place], [id number]. tel:[phone] OFFICE/OUTPA TIENT VISIT NEW [facility], [address] [facility] [address] [facility] [address], [place], [address], [place] tel:[phone] [facility] Body mass index [BMI] 34.0-34.9, adultPain in left hipPrimary osteoarthritis of left hip 3 Haim Reina. [address], [place], [place], [id number]. tel:[phone] Family History Family Member Type Diagnosis Age At Onset Mother Problem Hypertension Father Problem Cancer, prostate Payers Payer name Insurance type Covered constitution party ID Authoriza tion(s) No Information Social [...] Future Order: Lab Order CBC With Differential/Platelet ([id number]), Ordered on: Ordered Future Order: Lab Order Comp. Me tabolic Panel ([id number]), Ordered on: Ordered Future Order: Lab Order PT and P TT ([id number]), Ordered on: Ordered History Of Present Illness [...]
--- OUTSIDE RECORDS SUMMARY | 2024-07-15 02:53 | XMS_ITS | Clinical Summary ---
Author Organization [facility] Address [address] [place] [address] Care Team Providers Care Associate Professor Of Literature Name Role Phone Milo Negro MD Primary Care Prov ider Allergies No known active allergies Medications Vitamin B12 100 MCG tablet Take 0.5 tablets (50 mcg total) by mouth daily. Active Multiple Vitamins-Mineral s (MULTIVITAMIN GUMMIES ADULTS OR) Active albuterol sulfate HFA 108 (90 Base) MCG/ACT inhaler 04/26/2024 Act octavio azithromycin (ZITHROMAX) 250 MG tablet 04/26/2024 Active predniSONE 50 MG tablet 04/26/2024 Active hydroCHLOROthiaz perfecto (MICROZIDE) 12.5 MG tabletIndication s:Hypertension, unspecified type Take 1 tablet (12.5 mg total) by mouth daily. 90 tablet 3 04/28/2024 Active lisinopril (PRINIVIL) 10 MG tabletIndication s:Hypertension, unspecified type Take 1 tablet (10 mg total) by mouth daily. 90 tablet 3 04/28/2024 Active semaglutide-weig ht management (WEGOVY) 2.4 mg/dose injection (PEN)Indications :Weight Loss Inject 2.4 mg into the skin once a week. Indications: Weight Loss 3 mL 2 04/28/2024 Active Active Problems Problem Noted Date Diagnosed Date Pure hypercholesterolemia 04/28/2024 Overview (04/28/2024): Hx of HLD. Currently Controlled with none, with no complications. Most recent Lipid panel on 09/2023, with LDL of 114. D/w pt importance of diet and exercise. Has no hx of Diabetes Mellitus, Heart Attack, and Stroke. The 10-year ASCVD risk score (Lisa GRANGER, et al., 2019) is: 5.3% Values used to calculate the score: Age: 54 years Sex: Male Is Non- : No Diabetic: No Tobacco smoker: No Systolic Blood Pressure: 112 mmHg Is BP treated: Yes HDL Cholesterol: 38 MG/DL Total Cholesterol: 165 MG/DL Class 1 obesity due to exces s calories with serious comorbidity and body mass index (BMI) of 34.0 to 34.9 in adult 04/17/2023 Overview (04/28/2024): Starting Weight: 275 lbs, BMI 36.28 Weight today: 260 lbs, BMI 34.30 Increased weight from last appointment gained 15 lbs Weight change: -15 lbs, -5.5% TBW Wt Readings from Last 5 Encounters: 01/27/24 111.1 kg (245 lb) 12/10/23 109.3 kg (241 lb) 11/17/23 110.7 kg (244 lb 1 oz) 10/19/23 118.5 kg (261 lb 3.2 oz) 09/22/23 124.7 kg (275 lb) BMI Readings from Last 5 Encounters: 01/27/24 32.32 kg/m 12/10/23 31.80 kg/m 11/17/23 32.20 kg/m 10/19/23 34.46 kg/m 09/22/23 36.28 kg/m Diet: Doesn't usually eat lunch 2/2 to working. Also eats small breakfast. Exercise: Hasn't been able to exercise 2/2 to weather. Before was doing 8,000 step walk in the AM, every day Medication: Wegovy 2.4 mg SC Qweekly Side effects: Denies abdominal pain, nausea, vomiting, constipation, Previous management: Phentermine, didn't have side effects, and Topamax, didn't feel good Congenital dysplasia of hip (HHS/HCC) 01/28/2023 Obesity (BMI 30.0-34.9) 10/08/2022 S/P total left hip arthroplasty 08/11/2022 Osteoarthritis of left hip 07/29/2022 Lumbar radiculopathy 04/18/2022 Overview (04/18/2022): Added automatically from request for surgery [id number] Foraminal stenosis of lumbar region 04/02/2022 Assessment & Plan (04/02/2022 7:49 PM FARM IMPLEMENT ENGINE MECHANIC): Moderate foraminal stenosis L1-L2 on the left. Essentially failed hip joint injection. Recommend nerve root injection pain management referral. Primary osteoarthritis of both hips 03/08/2022 Assessment & Plan (04/02/2022 7:48 PM FARM IMPLEMENT ENGINE MECHANIC): Minimal relief with fluoroscopic injection left hip. We will consider pain management referral for a L1 2 nerve root injection to the left Assessment & Plan (03/08/2022 4:08 PM FARM IMPLEMENT ENGINE MECHANIC): We discussed the risks, benefits and alternatives. [...] 02/04/2022 Assessment & Plan (03/08/2022 4:08 PM FARM IMPLEMENT ENGINE MECHANIC): X-rays show degenerative disc disease throughout. Loss of the normal lordotic curve suggesting spasms. Again, begin diclofenac, Flexeril MRI for the lumbar spine. Diagnostic and therapeutic injection to the left hip. Dysfunction of left eustachian tube 10/02/2021 Hypertension, unspecified type 03/04/2018 Overview (04/28/2024): Hx of HTN. Currently on Lisinopril 10 mg PO daily, HCTZ 12.5 mg PO daily. Home BP have been 120/70. Denies CP, SOB, ALAS, and vision changes. Sinusitis, unspecified chronicity, unspecified l ocation 03/04/2018 [...] 11/17/19 Assessment & Plan (04/02/2022 7:49 PM FARM IMPLEMENT ENGINE MECHANIC): We discussed the adverse effects of weight on osteoarthritis. For every 1 pound loss, 4 to 6 pounds of stress is relieved from the knee, slightly more at the ankle and slightly less at the hip. Assessment & Plan (03/08/2022 4:09 PM FARM IMPLEMENT ENGINE MECHANIC): We discussed the adverse effects of weight [...] Encounters Date Type Department Care Team Description 04/28/2024 7:20 AM FARM IMPLEMENT ENGINE MECHANIC Office Visit [facility] Family Medicine - [place] [address], [address] [place] [address] IngridMilo Grady MD Follow Up (Transfer of care from Dr. Monteiro- [facility]. ) 04/28/2024 Travel from Last 3 Months Immunizations Immunization Administration Dates Next Due Td (Tenivac) preservative [...] Date Recorded Patient Health Questionnaire-2 Score 0 04/28/2024 Education Answer Date Recorded What is the highest level of school you have completed or the highest degree you have received? High school graduate 03/04/2018 Sex and Gender Information Value Date Recorded Sex Assigned at Male 03/04/2018 2:26 PM FARM IMPLEMENT ENGINE MECHANIC Legal Sex Male 4:33 PM CDT Gender Identity Male 03/04/2018 2:26 PM FARM IMPLEMENT ENGINE MECHANIC Sexual Orientation Straight 03/04/2018 2: 26 PM FARM IMPLEMENT ENGINE MECHANIC Last Filed Vital Signs Vital Sign Reading Time Taken Comments Blood Pressure 122/82 04/28/2024 7:19 AM FARM IMPLEMENT ENGINE MECHANIC Pulse 72 04/28/2024 7:19 AM FARM IMPLEMENT ENGINE MECHANIC Temperature 36.7 C (98 F) 04/28/2024 7:19 AM FARM IMPLEMENT ENGINE MECHANIC Respiratory Rate 18 04/28/2024 7:19 AM FARM IMPLEMENT ENGINE MECHANIC Oxygen Saturation 97% 04/28/2024 7:19 AM FARM IMPLEMENT ENGINE MECHANIC Inhaled Oxygen Concentration - - Weight 117.9 kg (260 lb) 04/28/2024 7:19 AM FARM IMPLEMENT ENGINE MECHANIC Height 185.4 cm (6' 1 ) 04/28/2024 7:19 AM FARM IMPLEMENT ENGINE MECHANIC Body Mass Index 34.3 04/28/2024 7:19 AM FARM IMPLEMENT ENGINE MECHANIC Plan of Treatment Upcoming Encounters Date Type Department Care Team (Late st Contact Info) Description 09/26/2024 7:20 AM CDT Office Visit [facility] Family Medicine - [address], [address] [place] [phone] Ingrid VII, Milo Parada MD [address] [place] [address], [address] [place] [address] Health Maintenance Due Date Last Done Comments Annual Physical 1972 Hepatitis B Vaccines (1 of 3 - 19+ 3-dose series) 1988 Pneumococcal Vaccine: 50+ Years (1 of 1 - PCV) 2019 Zoster Vaccines (1 of 2) 2019 COVID-19 Vaccine (1 - 2023-2 5 season) 2023 DTaP, Tdap and Td Vaccines ( 2 - Td or Tdap) 05/18/2026 05/18/2016, 01/08/2011 Colorectal Cancer Screening Colonoscopy (10 Years) 07/28/2033 07/29/2023, 07/29/2023 Hepatitis C Completed 10/08/2022 PHQ-2 (Physician Prospect) Completed 04/28/2024 Meningococcal B Vaccine Aged Out No l onger eligible based on patient's age to complete this topic Meningococcal Vaccine Aged Out No chuyita ryley eligible based on patient's age to complete this topic RSV Immunizations Under 20 Months Aged Out No longer eligible b ased on patient's age to complete this topic Medical Devices Implanted Type Area Proprietary Trader Device Identifier Shelf Expiration Date Model / Serial / Lot Ear Ear Right: Ear Description:Ear bone Hip Components Hip Components Left: Hip Tube Ear Blue 12mm 1.14mm 9.8mm T Tympanic-2022 Implanted:Qty: 1 on 06/20/2022 by Hoang Garcia MD Tube Implant Ear Geneix 747 / / [id number] Procedures Procedure Name Priority Date/Time Associated Diagnosis Comments COLONOSCOPY Routine 07/29/2023 8:06 AM CDT HEPATITIS C ANTIBODY W/RFX TO HCV RNA Routine 10/08/2022 9:04 AM CDT Encounter for hepatitis C screening test for low risk patient from Last 3 Months or Most Recently Relevant to Health Maintenance Results * HEPATITIS C ANTIBODY ([facility] ONLY) (10/08/2022 9:04 AM CDT) HEPATITIS C AB NON-REACT OCTAVIO NON-REACT OCTAVIO [employer] [facility] Comment: HCV antibody was non-reactive. There is no laboratory evidence of HCV infection. In most cases, no further action is required. However, if recent HCV exposure is suspected, a test for HCV RNA (test code 68915) is suggested. For additional information please refer to http://education.Swiftype/faq/ZRN39y8 (This link is being provided for informational/ educational purposes only.) 10/08/2022 9:04 AM CDT 10/09/2022 3:11 AM CDT Narrative Resulting Agency Comment Performing Organization Information: Site ID: [place] Name: [facility] Address: [address] [place] [address] Director: Carmen Cole MD us Vale Salmon [facility] Final Re sult [employer] De[employer] [facility] [employer] [facility] [id number] [place] [address], from Last 3 Months or Most Recently Relevant to Health Maintenance Insurance [facility] [place] [id number] [facility] Advance Directives Documents on File Type Date Recorded Patient Atmospheric Drier Tender Expl anation Legal Documents 05/01/2022 8:40 AM COMPLETE D ATTNY REQ Care Teams Associate Professor Of Literature Relationship Specialty Start Date End Date Ingrid VII, Milo Parada MD [address] [place], [place] [address] PCP - General FAMILY PRACTICE 01/27/24
--- OUTSIDE RECORDS SUMMARY | 2024-07-15 02:53 | XMS_ITS | Encounter Summary ---
Author Organization [facility] Address [facility] [place] [address] Care Team Providers Care Health Care Aide Name Role Phone Terese Hathaway Primary Care Provider [phone] Vale Salmon [facility] Primary Care Provider + Korin Monteiro MD Primary Care Provider [phone] IngridMilo Grady MD Primary Care Prov ider Encounter Details Date Type Department Care Team (Late st Contact Info) Description 11/21/2021 MyChart Message Enc [facility] Medical Group Family & Internal Medicine [facility] [address] [place] [address] Terese Hathaway [place] [id number] [place] [address] [address] Social History Tobacco Use [...] Sex Assigned at Male 03/04/2018 2:26 PM HOOKER OPERATOR Legal Sex Male 4:33 PM CDT Gender Identity Male 03/04/2018 2:26 PM HOOKER OPERATOR Sexual Orientation Straight 03/04/2018 2: 26 PM HOOKER OPERATOR COVID-19 Exposure Response Date Recorded In the last 10 days, have yo u been in contact with someone who was confirmed or suspected to have Coronavirus/COVID-19? No / Unsure 11/21/2021 6:58 AM CDT documented as of this encounter Plan of Treatment Upcoming Encounters Date Type Department Care Team (Late st Contact Info) Description 09/26/2024 7:20 AM CDT Office Visit [facility] Family Medicine [address], [address] [address] Ingrid VII, Milo Parada MD [address] [place] [address], [address] [address] documented as of this encounter Visit Diagnoses Not on filedocumented in this encounter Additional Health Concerns Infection Onset Date Last Indicated Resolved Time COVID-19 Rule Out 12/10/2023 12/10/2023 12/10/2023 11:34 AM CDT Assessment Noted Time PHQ-9 Depression Total Score: 1 10/03/19 22 4:03 PM CDT documented as of this encounter Care Teams Health Care Aide Relationship Specialty [place] [address] [facility] [place] [address] PCP - General PHYSICIAN PHYSICIAN OFFICE SECRETARY 02/01/20 10/05/22 Vale Salmon, [facility] [address] [facility], [address] [address] PCP - General 10/06/22 02/09/23 [place] [address] [address], [address] [place] [address] PCP - General FAMILY PRACTICE 02/10/23 01/26/24 Milo Negro MD [address] [place] [id number] PCP - General FAMILY PRACTICE 01/27/24 documented as of this encounter
--- OUTSIDE RECORDS SUMMARY | 2024-07-15 02:53 | XMS_ITS | Continuity of Care Document ---
Author Organization [facility] Address [address] [place] [address] Phone Care Team Providers Care Medical Research Associate Name Role Phone Jens Saenz MD Unavailable [...] Copied on Encounter Office/outpat ient visit,est, mod [facility], [address] [place] [address], [id number], tel:[phone] [facility] No Information 2 Dany Colindres. [address] [place] [address], [id number] , . tel:[phone] Referring Provider: Gurwinder Franco, Was @counts include 234 beds at the [facility] But Not There Anymore, [place]. Office/outpat ient visit,est, [facility], [address] [place], [place], [id number], tel:[phone] [facility] No Information 2 Ambrose Jens. [address] [place] [address], [id number] , . tel:[phone] Referring Provider: Gurwinder Franco, Was @si But Not There Anymore, [place]. Office/outpat ient visit,est, [facility], [address] [place] [address], [id number], tel:[phone] [facility] No Information 2 Ambrose Jens. [address] [place] [address], [id number] , . tel:[phone] Referring Provider: Gurwinder Franco, Was @sih But Not There Anymore, [place]. Office/outpat ient visit,est, [facility], [address] [place] [address], [id number], tel:[phone] [facility] No Information 1 Ambrose Jens. [address] [place] [address], [id number] , [place]. tel:[phone] Referring Provider: Gurwinder Franco, Was @si But Not There Anymore, [place]. Office/outpat ient visit,est, [facility], [address] [place] [address], [id number], tel:[phone] [facility] No Information 1 Ambrose Jens. [address] [place] [address], [id number] , [place]. tel:[phone] Referring Provider: Gurwinder Franco, Was @si But Not There Anymore, [place]. Office/outpat ient visit,est, [facility], [address] [place] [address], [id number], tel:[phone] [facility] No Information 1 Ambrose Jens. [address] [place] [address], [id number] , . tel:[phone] Referring Provider: Gurwinder Franco, Was @counts include 234 beds at the [facility] But Not There Anymore, [place]. Office consultation, moderate [facility], [address] [place], [place], [id number], tel:[phone] [facility] No Information 0 1 Amb[address] Col[address]res. [address] [place], [place], [id number] , . tel:[phone] Referring Provider: Gurwinder Franco, Was @counts include 234 beds at the [facility] But Not There Anymore, [place]. Family History Family Member Type Diagnosis Age At Onset No Information Payers Payer name Insurance type Covered constitution [...]
--- OUTSIDE RECORDS SUMMARY | 2024-07-15 02:54 | XMS_ITS | Encounter Summary ---
Author Organization [facility] Address [address] [place] [address] Care Team Providers Care Package Delivery Room Service Runner Name Role Phone Terese Hathaway Primary Care Provider [phone] Vale SalmonP- Primary Care Provider + Korin Monteiro MD Primary Care Provider [phone] IngridMilo Grady MD Primary Care Prov ider Encounter Details Date Type Department Care Team (Late st Contact Info) Description 06/16/2022 Invenra Message Enc [facility] Group Family & Internal Medicine [address] [address] Aleah, [facility] Provider Social History Tobacco Use Types [...] Sex Assigned at Male 03/04/2018 2:26 PM SEISMOLOGY TEACHER Legal Sex Male 4:33 PM CDT Gender Identity Male 03/04/2018 2:26 PM SEISMOLOGY TEACHER Sexual Orientation Straight 03/04/2018 2: 26 PM SEISMOLOGY TEACHER COVID-19 Exposure Response Date Recorded In the last 10 days, have yo u been in contact with someone who was confirmed or suspected to have Coronavirus/COVID-19? No / Unsure 05/26/2022 1:42 PM SEISMOLOGY TEACHER documented as of this encounter Plan of Treatment Upcoming Encounters Date Type Department Care Team (Late st Contact Info) Description 09/26/2024 7:20 AM CDT Office Visit [facility] Family Medicine - [address], [address] [place] [phone] Ingrid VII, Milo Parada MD [address] [place] [address], [address] [address] documented as of this encounter Visit Diagnoses Not on filedocumented in this encounter Additional Health Concerns Infection Onset Date Last Indicated Resolved Time COVID-19 Rule Out 12/10/2023 12/10/2023 12/10/2023 11:34 AM CDT Assessment Noted Time PHQ-9 Depression Total Score: 1 10/03/19 22 4:03 PM CDT documented as of this encounter Care Teams Package Delivery Room Service Runner Relationship Specialty [place] [address] [place] [address] PCP - General PHYSICIAN COMMUNICATIONS MARKETING INTERN 02/01/20 10/05/22 Vale Salmon, VACUUM TANK TENDER- [address] Gama Dhaliwal, [address] [address] PCP - General 10/06/22 02/09/23 [place] [address] [address], [address] [place] [address] PCP - General FAMILY PRACTICE 02/10/23 01/26/24 Milo Negro MD [address] [place] [address] PCP - General FAMILY PRACTICE 01/27/24 documented as of this encounter
--- OUTSIDE RECORDS SUMMARY | 2024-07-15 02:54 | XMS_ITS | Encounter Summary ---
Author Organization [facility] Address [facility] [place] [address] Care Team Providers Care Rn Coronary Care Unit Name Role Phone Terese Hathaway Primary Care Provider [phone] Vale Salmon [facility] Primary Care Provider + Korin Monteiro MD Primary Care Provider [phone] IngridMilo Grady MD Primary Care Prov ider Encounter Details Date Type Department Care Team (Late st Contact Info) Description 07/02/2022 MyChart Message Enc [facility] Medical Group Family & Internal Medicine [facility] [address] [place] [address] Terese [place] [address] [place] [address] Arpit Bone MRI & CT Scans [...] Assigned at Male 03/04/2018 2:26 PM INFORMATION RESOURCE CONSULTANT Legal Sex Male 4:33 PM CDT Gender Identity Male 03/04/2018 2:26 PM INFORMATION RESOURCE CONSULTANT Sexual Orientation Straight 03/04/2018 2: 26 PM INFORMATION RESOURCE CONSULTANT COVID-19 Exposure Response Date Recorded In the last 10 days, have yo u been in contact with someone who was confirmed or suspected to have Coronavirus/COVID-19? No / Unsure 07/02/2022 11:18 AM CDT documented as of this encounter Functional Status * Over the past 2 weeks, how often have you been bothered by any of the following problems? Question Answer Date of Assessment Author Status Little interest or pleasure in doing things Not at all 07/02/2022 11:25 AM CDT Angeles Oliveira MA Active Feeling down, depressed, or hopeless Not at all 07/02/2022 11:25 AM CDT Licha Oliveira MA Active Patient Health Questionnaire-2 Score 0 07/02/2022 11:25 AM CDT Darcy Oliveira MA Active documented as of this encounter Plan of Treatment Upcoming Encounters Date Type Department Care Team (Late st Contact Info) Description 09/26/2024 7:20 AM CDT Office Visit [facility] Medical Group Family Medicine [address], [address] [address] Ingrid VII, Milo Parada MD [address] [place] [address], [address] [address] documented as of this encounter Visit Diagnoses Not on filedocumented in this encounter Additional Health Concerns Infection Onset Date Last Indicated Resolved Time COVID-19 Rule Out 12/10/2023 12/10/2023 12/10/2023 11:34 AM CDT Assessment Noted Time PHQ-9 Depression Total Score: 1 10/03/19 22 4:03 PM CDT documented as of this encounter Care Teams Rn Coronary Care Unit Relationship Specialty [place] [address] [place] [address] PCP - General PHYSICIAN FREELANCE DIGITAL PROJECT MANAGER 02/01/20 10/05/22 Vale Salmon, [facility]- [address] [address], [address] [place] [address] PCP - General 10/06/22 02/09/23 [place] [address] [address], [address] [place] [address] PCP - General FAMILY PRACTICE 02/10/23 01/26/24 Milo Negro MD [address] [place] [address], [address] [address] PCP - General FAMILY PRACTICE 01/27/24 documented as of this encounter
[2024-07-15 02:58] VITALS: BP 130/85; PULSE 72; RESP 19; TEMP 36.2; O2SAT 98
[2024-07-15 03:19] LABS: Basophils Percent Auto 0.5 % (0.2-1.2); Eosinophils Absolute Auto 0.3 K/mm3 (0-0.3); Eosinophils Percent Auto 4.2 % (0-4.4); Hematocrit 46.2 % (42.0-52.0); Hemoglobin 15.7 g/dL (14.0-18.0); Immature Granulocyte Absolute 0.01 K/mm3 (0.00-0.031); Immature Granulocyte Percent A 0.1 % (0-0.5); Lymphocytes Absolute Auto 3.11 K/mm3 (0.9-3.2); Lymphocytes Percent Auto 40.8 % (18.3-44.2); Mean Corpuscular Hemoglobin 32.1 pg (26-34); Mean Corpuscular Volume 94.5 fl (80-100); Mean Platelet Volume 10.2 fl (7.4-10.4); Monocytes Absolute Auto 0.9 K/mm3 (0.1-0.6); Monocytes Percent Auto 12.2 % (2.6-8.5); Neutrophils Absolute Auto 3.2 K/mm3 (1.3-6.7); Neutrophils Percent Auto 42.2 % (45.5-73.1); Platelet Count Result 235 k/mm3 (150-375); Red Blood Count 4.89 M/mm3 (4.6-6.20); Red Cell Distribution Width 13.1 % (11.5-14.5); White Blood Count 7.6 K/mm3 (4.5-10.0)
[2024-07-15] MEDS: ONDANSETRON INJ 4 MG/2 ML VIAL IV PUSH (03:22)
[2024-07-15] MEDS: HYDROmorphone HCL INJ (*CRX) 2 MG/ML VIAL 1 MG IV PUSH (03:22)
[2024-07-15 03:28] LABS: Alanine Aminotransferase 27 U/L (6-50); Albumin Level 4.4 g/dL (3.5-5.1); Alkaline Phosphatase 67 U/L (38-126); Anion Gap 11 mmol/L (4-12); Aspartate Amino Transferase 24 U/L (17-59); Bilirubin,Total 0.7 mg/dL (0.2-1.3); Blood Urea Nitrogen 17 mg/dL (9-20); Carbon Dioxide 25 mmol/L (22-30); Chloride 102 mmol/L (98-107); Estimated CRCL calculation 108 ml/min; Estimated Glomerular Filt Rate > 60; Glucose 110 mg/dL (65-110); Potassium 3.4 mmol/L (3.4-5.0); Sodium 138 mmol/L (137-145)
[2024-07-15 03:38] LABS: Add Urine Microscopic? YES; Appearance Urine Clear (Clear); Bacteria Urine None Seen /hpf; Bilirubin Urine Negative (Negative); Blood Urine 3+ (Negative); Budding Yeast Urine Present /hpf; Color Urine Yellow (Yellow); Glucose Urine UA Negative (Negative); Ketones Urine Negative (Negative); Leukocyte Esterase Ur Negative LEU/UL (Negative); Mucus Urine Present /lpf; Need Manual Microscopic Reviewed; Nitrate Urine Negative (Negative); Non Pathogenic Casts 0-2; Protein Urine 1+ mg/dL (Negative); RBC Urine 51-100 /hpf (0-2); Specific Grav Ur 1.028 (1.001-1.035); Squamous Epithelial Cell Urine None Seen /hpf (Few); WBC Urine 0-5 /hpf (0-3); pH Urine 5.5 (5.0-9.0)
--- OUTSIDE RECORDS SUMMARY | 2024-07-15 03:58 | XMS_ITS | Clinical Summary ---
Author Organization [facility] Address [address] [place] [address] Care Team Providers Care Ict Customer Support Officer Name Role Phone Johnnie Chun MD Primary Care Provider + Source Comments [facility],non-owned Affiliates and Associated Physician Practices is amultiple site organization consisting of ambulatory clinics and hospital sitesin [place], [place], [place] and [place]. This disclosure is being madepursuant to the Care Everywhere program and may not contain all information available regarding this patient. Last updated 17[employer] [facility] Allergies No known active allergies Medications * [...] on file Legal Sex Male 1:14 PM CREDIT AND COLLECTION MANAGER Gender Identity Not on file Sexual Orientation Not on file Last Filed Vital Signs Vital Sign Reading Time Taken Comments Blood Pressure 128/84 12/23/2017 9:41 AM CDT Pulse 79 12/23/2017 9:41 AM CDT Temperature 36.9 C (98.5 F) 12/23/2017 9:41 AM CDT Respiratory Rate 16 03/04/2017 6:43 PM CREDIT AND COLLECTION MANAGER Oxygen Saturation 98% 12/23/2017 9:41 AM [...] patient's age to complete this topic Insurance [facility] [address] [facility] Care Teams Ict Customer Support Officer Relationship Specialty Start Date End Date Johnnie Chun MD PCP - General Internal Medicine 03/04/17
--- OUTSIDE RECORDS SUMMARY | 2024-07-15 03:58 | XMS_ITS | Encounter Summary ---
Author Organization [facility] Address [address] [place] [address] Care Team Providers Care Content Creation Manager Name Role Phone Korin Monteiro MD Primary Care Provider [phone] Ingrid Milo BARRIOS MD Primary Care Prov ider Encounter Details Date Type Department Care Team (Late st Contact Info) Description 12/08/2023 [employer] Message Enc [facility] Medical Group Family Medicine [facility] [address], [address] [place] [address] [employer], [facility] Provider Michelle Social History Tobacco [...] Sex Assigned at Male 03/04/2018 2:26 PM RVDA MASTER CERTIFIED RV TECHNICIAN Legal Sex Male 4:33 PM CDT Gender Identity Male 03/04/2018 2:26 PM RVDA MASTER CERTIFIED RV TECHNICIAN Sexual Orientation Straight 03/04/2018 2: 26 PM RVDA MASTER CERTIFIED RV TECHNICIAN documented as of this encounter Plan of Treatment Upcoming Encounters Date Type Department Care Team (Late st Contact Info) Description 09/26/2024 7:20 AM CDT Office Visit [facility] Medical Group Family Medicine - [place] [address] [facility], [address] [place] [address] Milo Negro MD [address] [place] [address], [address] [id number] documented as of this encounter Visit Diagnoses Not on filedocumented in this encounter Additional Health Concerns Infection Onset Date Last Indicated Resolved Time COVID-19 Rule Out 12/10/2023 12/10/2023 12/10/2023 11:34 AM CDT Assessment Noted Time PHQ-9 Depression Total Score: 0 04/17/19 11:51 AM RVDA MASTER CERTIFIED RV TECHNICIAN documented as of this encounter Care Teams Content Creation Manager Relationship Specialty Start Date End Date Korin Monteiro MD PCP - General FAMILY PRACTICE 02/10/23 01/26/24 Milo Negro MD [address] [place] [address] PCP - General FAMILY PRACTICE 01/27/24 documented as of this encounter
--- OUTSIDE RECORDS SUMMARY | 2024-07-15 03:58 | XMS_ITS | Encounter Summary ---
Author Organization [facility] Address [facility] [place] [address] Care Team Providers Care Mental Retardation Aide Name Role Phone Terese Hathaway Primary Care Provider [phone] [facility] Care Provider + Korin Monteiro MD Primary Care Provider [phone] IngridMilo Grady MD Primary Care Prov ider Encounter Details Date Type Department Care Team (Late st Contact Info) Description 03/11/2022 [employer] Message Enc [facility] Health Information Services [address] [place] [address] Aleah, [facility] Provider Pt Amendment Request Social History Tobacco [...] Sex Assigned at Male 03/04/2018 2:26 PM STAKING ENGINEER Legal Sex Male 4:33 PM CDT Gender Identity Male 03/04/2018 2:26 PM STAKING ENGINEER Sexual Orientation Straight 03/04/2018 2: 26 PM STAKING ENGINEER COVID-19 Exposure Response Date Recorded In the last 10 days, have yo u been in contact with someone who was confirmed or suspected to have Coronavirus/COVID-19? No / Unsure 03/03/2022 1:16 PM STAKING ENGINEER documented as of this encounter Plan of Treatment Upcoming Encounters Date Type Department Care Team (Late st Contact Info) Description 09/26/2024 7:20 AM CDT Office Visit [facility] Medical Group Family Medicine [address], [address] [phone] Ingrid Milo BARRIOS MD [address] [place] [address], [address] [address] documented as of this encounter Visit Diagnoses Not on filedocumented in this encounter Additional Health Concerns Infection Onset Date Last Indicated Resolved Time COVID-19 Rule Out 12/10/2023 12/10/2023 12/10/2023 11:34 AM CDT Assessment Noted Time PHQ-9 Depression Total Score: 1 10/03/19 22 4:03 PM CDT documented as of this encounter Care Teams Mental Retardation Aide Relationship Specialty [place] [address] [place] [address] PCP - General PHYSICIAN DISBURSING OFFICER 02/01/20 10/05/22 Vale Salmon, FITNESS ATTENDANT- [address] Gama Dhaliwal, [address] [address] PCP - General 10/06/22 02/09/23 [place] [address] [address], [address] [place] [address] PCP - General FAMILY PRACTICE 02/10/23 01/26/24 Milo Negro MD [address] [place] [address] PCP - General FAMILY PRACTICE 01/27/24 documented as of this encounter
--- OUTSIDE RECORDS SUMMARY | 2024-07-15 03:58 | XMS_ITS | Encounter Summary ---
Author Organization [facility] Address [address] [place] [address] Care Team Providers Care Career Center Advisor Name Role Phone Terese Hathaway Primary Care Provider [phone] Vale SalmonP- Primary Care Provider + Korin Monteiro MD Primary Care Provider [phone] IngridMilo Grady MD Primary Care Prov ider Encounter Details Date Type Department Care Team (Late st Contact Info) Description 06/16/2022 angelMD Message Enc [facility] Medical Group Family & Internal Medicine [address] [address] Aleah, [facility] Provider Social History Tobacco Use Types [...] Sex Assigned at Male 03/04/2018 2:26 PM CHLORINE CELLS OPERATOR Legal Sex Male 4:33 PM CDT Gender Identity Male 03/04/2018 2:26 PM CHLORINE CELLS OPERATOR Sexual Orientation Straight 03/04/2018 2: 26 PM CHLORINE CELLS OPERATOR COVID-19 Exposure Response Date Recorded In the last 10 days, have yo u been in contact with someone who was confirmed or suspected to have Coronavirus/COVID-19? No / Unsure 05/26/2022 1:42 PM CHLORINE CELLS OPERATOR documented as of this encounter Plan of Treatment Upcoming Encounters Date Type Department Care Team (Late st Contact Info) Description 09/26/2024 7:20 AM CDT Office Visit [facility] Medical Group Family Medicine - [address], [address] [place] [address] Ingrid VII, Milo Parada MD [address] [place] [address], [address] [address] documented as of this encounter Visit Diagnoses Not on filedocumented in this encounter Additional Health Concerns Infection Onset Date Last Indicated Resolved Time COVID-19 Rule Out 12/10/2023 12/10/2023 12/10/2023 11:34 AM CDT Assessment Noted Time PHQ-9 Depression Total Score: 1 10/03/19 22 4:03 PM CDT documented as of this encounter Care Teams Career Center Advisor Relationship Specialty [place] [address] [place] [address] PCP - General PHYSICIAN DOT NET DEVELOPER 02/01/20 10/05/22 Vale Salmon, RADIATION PHYSICIST- [address] Gama Dhaliwal, [address] [address] PCP - General 10/06/22 02/09/23 [place] [address] [address], [address] [place] [address] PCP - General FAMILY PRACTICE 02/10/23 01/26/24 Milo Negro MD [address] [place] [address] PCP - General FAMILY PRACTICE 01/27/24 documented as of this encounter
--- OUTSIDE RECORDS SUMMARY | 2024-07-15 03:58 | XMS_ITS | Clinical Summary ---
Author Organization [facility] Address [address] [place] [address] Care Team Providers Care Managing Partner Digital Content Marketing [place] Name Role Phone Ananth Alvardao MD Unavailable [phone] Korin Monteiro MD Primary Care Provider [phone] Allergies No known active allergies Medications cholecalciferol [...] this topic Medical Devices Implanted Type Area Nurse Practitioner Physicians Assistant Device Identifier Shelf Expiration Date Model / Serial / Lot Implantech Alliedsil 3x2in Nonreinforced Permanent Implantable Thk.04in - - [id number] Implanted:Qty: 1 on 12/27/2021 by Hoang Garcia MD at [facility] Right: Ear Implantech [id number] 08/29/2026-40 / / [id number] [employer] Porp Preble Prosthesis Ossicular 655 - [id number] Implanted:Qty: 1 on 06/20/2022 by Hoang Garcia MD at [facility] Right: Ear [employer] [id number] 04/23/2027 655 / / [id number] Insurance [facility] CHOICE PLUS Member Subscriber Plan / Payer (Ef fective 2021-Present) Name:Elijah Rey Relation to Subscriber:Self Name:Elijah Rey Payer ID:[id number] ([facility]) Type:[facility] HMO/PPO Address: [address] [address] [facility] CHOICE PLUS Care Teams Managing Partner Digital Content Marketing [place] Relationship Specialty Start Date End Date Korin Monteiro MD [address] [facility] [address] [place] [address] PCP - General Family Practice 11/09/23 Ananth Alvarado MD [address] [place] [address] Referring Physician Otolaryngology 11/19/21
--- OUTSIDE RECORDS SUMMARY | 2024-07-15 03:58 | XMS_ITS | Continuity of Care Document ---
Author Organization [facility] Address [address] [place] [address] Phone Care Team Providers Care Police Records Clerk Name Role Phone Jens Saenz MD Unavailable [...] Copied on Encounter Office/outpat ient visit,est, mod [facility], [address] [place] [address], [id number], tel:[phone] [facility] No Information 2 Dany Colindres. [address] [place] [address], [id number] , . tel:[phone] Referring Provider: Gurwinder Franco, Was @[facility] But Not There Anymore, [place]. Office/outpat ient visit,est, [facility], [address], [place], [id number], tel:[phone] [facility] No Information 2 Ambrose Jens. [address] [place] [address], [id number] , . tel:[phone] Referring Provider: Gurwinder Franco, Was @si But Not There Anymore, [place]. Office/outpat ient visit,est, [facility], [address] [place] [address], [id number], tel:[phone] [facility] No Information 2 Ambrose Jens. [address] [place] [address], [id number] , . tel:[phone] Referring Provider: Gurwinder Franco, Was @sih But Not There Anymore, [place]. Office/outpat ient visit,est, [facility], [address] [place] [address], [id number], tel:[phone] [facility] No Information 1 Ambrose Jens. [address] [place] [address], [id number] , [place]. tel:[phone] Referring Provider: Gurwinder Franco, Was @si But Not There [place]ymore, [place]. Office/outpat ient visit,est, [facility], [address] [place] [address], [id number], tel:[phone] [facility] No Information 1 Ambrose Jens. [address] [place] [address], [id number] , [place]. tel:[phone] Referring Provider: Gurwinder Franco, Was @si But Not There [place]ymore, [place]. Office/outpat ient visit,est, [facility], [address] [place] [address], [id number], tel:[phone] [facility] No Information 1 Ambrose Jens. [address] [place] [address], [id number] , . tel:[phone] Referring Provider: Gurwinder Franco, Was @[facility] But Not There Anymore, [place]. Office consultation, moderate [facility], [address], [place], [id number], tel:[phone] [facility] No Information 0 1 Ambrose Colindres. [address], [place], [id number] , . tel:[phone] Referring Provider: Gurwinder Franco, Was @[facility] But Not There Anymore, [place]. Family History Family Member Type Diagnosis Age [...]
--- OUTSIDE RECORDS SUMMARY | 2024-07-15 03:58 | XMS_ITS | Encounter Summary ---
Author Organization [facility] Address [address] [place] [address] Care Team Providers Care Television Tube Inspector Name Role Phone Korin Monteiro MD Primary Care Provider [phone] Ingrid Milo BARRIOS MD Primary Care Prov ider Reason for Referral * Surgical (Routine) - Closed Specialty Diagnoses / Procedures Referred By María amaya Referred To Contact GENERAL SURGERY Diagnoses Encounter for screening for malignant neoplasm of colon Procedures Case request operating room: COLONOSCOPY Jens Cardona DO [address] [place] [address] Phone: tel: fax: Referral ID Status Reason Start Date Expiration Date Visits Re quested Visits Authorized [id number] Closed 06/04/2023 06/03/2024 1 1 Encounter Details Date Type Department Care Team (Late st Contact Info) Description 06/04/2023 Prep for Procedure [facility] Medical [facility] General Surgery - [address] [place], [address] [place] [address] Jens Cardona DO [address] [place] [address] Social History Tobacco Use Types Packs/Day [...] Sex Assigned at Male 03/04/2018 2:26 PM KETTLE CHIPPER Legal Sex Male 4:33 PM CDT Gender Identity Male 03/04/2018 2:26 PM KETTLE CHIPPER Sexual Orientation Straight 03/04/2018 2: 26 PM KETTLE CHIPPER documented as of this encounter Plan of Treatment Upcoming Encounters Date Type Department Care Team (Late st Contact Info) Description 09/26/2024 7:20 AM CDT Office Visit [facility] Group Family Medicine - [address], [address] [place] [address] Ingrid VII, Milo Parada MD [address] [place] [address], [address] [address] Scheduled Orders Name Type Priority Associated Diagnoses [...] Depression Total Score: 0 04/17/19 11:51 AM KETTLE CHIPPER documented as of this encounter Care Teams Television Tube Inspector Relationship Specialty Start Date End Date Korin Monteiro MD PCP - General FAMILY PRACTICE 02/10/23 01/26/24 Milo Negro MD [address] [place], [place] [address] PCP - General FAMILY PRACTICE 01/27/24 documented as of this encounter
--- OUTSIDE RECORDS SUMMARY | 2024-07-15 03:58 | XMS_ITS | Encounter Summary ---
Author Organization [facility] Address [facility] [place] [address] Care Team Providers Care Shark Biologist Name Role Phone Terese Hathaway Primary Care Provider [phone] Vale Salmon [facility] Primary Care Provider + Korin Monteiro MD Primary Care Provider [phone] IngridMilo Grady MD Primary Care Prov ider Encounter Details Date Type Department Care Team (Late st Contact Info) Description 07/02/2022 MyChart Message Enc [facility] Medical Group Family & Internal Medicine [facility] [address] [place] [address] Terese H[place]away [place] [address] [place] [address] Arpit Bone MRI & CT Scans [...] Sex Assigned at Male 03/04/2018 2:26 PM AUTOMOTIVE SERVICE PROFESSIONAL Legal Sex Male 4:33 PM CDT Gender Identity Male 03/04/2018 2:26 PM AUTOMOTIVE SERVICE PROFESSIONAL Sexual Orientation Straight 03/04/2018 2: 26 PM AUTOMOTIVE SERVICE PROFESSIONAL COVID-19 Exposure Response Date Recorded In the [...] Description 09/26/2024 7:20 AM CDT Office Visit [facility] Medical Group Family Medicine [address], [address] [address] Ingrid VII, Milo Parada MD [address] [place] [address], [address] [address] documented as of this encounter Visit Diagnoses Not on filedocumented in this encounter Additional Health Concerns Infection Onset Date Last Indicated Resolved Time COVID-19 Rule Out 12/10/2023 12/10/2023 12/10/2023 11:34 AM CDT Assessment Noted Time PHQ-9 Depression Total Score: 1 10/03/19 22 4:03 PM CDT documented as of this encounter Care Teams Shark Biologist Relationship Specialty [place] [address] [place] [address] PCP - General PHYSICIAN FITNESS WORKER 02/01/20 10/05/22 Vale Salmon, [facility]- [address] [address], [address] [place] [address] PCP - General 10/06/22 02/09/23 [place] [address] [address], [address] [place] [address] PCP - General FAMILY PRACTICE 02/10/23 01/26/24 Milo Negro MD [address] [place] [address], [address] [address] PCP - General FAMILY PRACTICE 01/27/24 documented as of this encounter
--- OUTSIDE RECORDS SUMMARY | 2024-07-15 03:58 | XMS_ITS | Continuity of Care Document ---
Author Organization [facility] Address [address] [place] [address] Phone Care Team Providers Care Arson And Bomb Investigator Name Role Phone Nuno Whitmore MD Unavailable [...] Providers Copied on Encounter [facility], [address], [place], [address], [place] tel:[phone] [facility] No Information Dec-1 5-202 3 L'Hommedieu Fisher. [address], [place], [place], [id number]. tel:[phone] OFFICE/OUTPA TIENT VISIT EST [facility], [address] [facility] [address] [address], [place], [address], [place] tel:[phone] [facility] Status post total replacement of left hip Nov- 3 L'Hommedieu Fisher. [address], [place], [place], [id number]. tel:[phone] Referring Provider: Terese Mi, [address], [place], [address] . tel:[phone] [facility], [address] [address], [place], [address], [place] tel:[phone] [facility] Status post total replacement of left hip Rogers- 3 L'Hommedieu Fisher. [address] , [place], [place], [id number]. tel:[phone] Referring Provider: Terese Mi, [address], [place], [address] . tel:[phone] [facility], [address] [address], [place], [address], [place] tel:[phone] [facility] Status post total replacement of left hipBody mass index [BMI] 34.0-34.9, adult 3 Eder [place]. [address] [facility] [address], [place], [place], [address], [place]. tel:[phone] Referring Provider: Terese Mi, [address], [place], [address] . tel:[phone] [facility], [address] [facility] [address] [facility] [address], [place], [address], [place] tel:[phone] [facility] Status post total replacement of left hipUnilateral primary osteoarthritis , left hipCongenital dysplasia of hip 3 No Information Referring Provider: Nuno vásquez, [address], [place], [address] . tel:[phone] [facility], [address], [place], [address], [place] tel:[phone] [facility] Primary osteoarthritis of left hipStatus post total replacement of left hip 3 Haim Reina. [address], [place], [place], [address]. tel:[phone] OFFICE/OUTPA TIENT VISIT NEW [facility], [address] [facility] [address] [facility] [address], [place], [address], [place] tel:[phone] [facility] Body mass index [BMI] 34.0-34.9, adultPain in left hipPrimary osteoarthritis of left hip 3 Haim Reina. [address], [place], [place], [address]. tel:[phone] Family History Family Member Type Diagnosis Age [...] Future Order: Lab Order CBC With Differential/Platelet ([id number]), Ordered on: Ordered Future Order: Lab Order Comp. Me tabolic Panel ([id number]), Ordered on: Ordered Future Order: Lab Order PT and P TT ([id number]), Ordered on: Ordered History Of Present Illness [...]
--- OUTSIDE RECORDS SUMMARY | 2024-07-15 03:58 | XMS_ITS | Clinical Summary ---
Author Organization [facility] Address [address] [place] [address] Care Team Providers Care System Consultant Name Role Phone Milo Negro MD Primary [...] (04/18/2022): Added automatically from request for surgery [id number] Foraminal stenosis of lumbar region 04/02/2022 Assessment & Plan (04/02/2022 7:49 PM STRUCTURAL ARCHITECT): Moderate foraminal stenosis L1-L2 on the left. Essentially failed hip joint injection. Recommend nerve root injection pain management referral. Primary osteoarthritis of both hips 03/08/2022 Assessment & Plan (04/02/2022 7:48 PM STRUCTURAL ARCHITECT): Minimal relief with fluoroscopic injection left hip. We will consider pain management referral for a L1 2 nerve root injection to the left Assessment & Plan (03/08/2022 4:08 PM STRUCTURAL ARCHITECT): We discussed the risks, benefits and alternatives. [...] 02/04/2022 Assessment & Plan (03/08/2022 4:08 PM STRUCTURAL ARCHITECT): X-rays show degenerative disc disease throughout. Loss [...] 11/17/19 Assessment & Plan (04/02/2022 7:49 PM STRUCTURAL ARCHITECT): We discussed the adverse effects of weight on osteoarthritis. For every 1 pound loss, 4 to 6 pounds of stress is relieved from the knee, slightly more at the ankle and slightly less at the hip. Assessment & Plan (03/08/2022 4:09 PM STRUCTURAL ARCHITECT): We discussed the adverse effects of weight [...] Department Care Team Description 04/28/2024 7:20 AM STRUCTURAL ARCHITECT Office Visit [facility] Family [facility] - [place] [address], [address] [place] [address] IngridMilo Grady MD Follow Up (Transfer of care from Dr. Monteiro- [facility]. ) 04/28/2024 Travel from Last 3 [...] Sex Assigned at Male 03/04/2018 2:26 PM STRUCTURAL ARCHITECT Legal Sex Male 4:33 PM CDT Gender Identity Male 03/04/2018 2:26 PM STRUCTURAL ARCHITECT Sexual Orientation Straight 03/04/2018 2: 26 PM STRUCTURAL ARCHITECT Last Filed Vital Signs Vital Sign Reading Time Taken Comments Blood Pressure 122/82 04/28/2024 7:19 AM STRUCTURAL ARCHITECT Pulse 72 04/28/2024 7:19 AM STRUCTURAL ARCHITECT Temperature 36.7 C (98 F) 04/28/2024 7:19 AM STRUCTURAL ARCHITECT Respiratory Rate 18 04/28/2024 7:19 AM STRUCTURAL ARCHITECT Oxygen Saturation 97% 04/28/2024 7:19 AM STRUCTURAL ARCHITECT Inhaled Oxygen Concentration - - Weight 117.9 kg (260 lb) 04/28/2024 7:19 AM STRUCTURAL ARCHITECT Height 185.4 cm (6' 1 ) 04/28/2024 7:19 AM STRUCTURAL ARCHITECT Body Mass Index 34.3 04/28/2024 7:19 AM STRUCTURAL ARCHITECT Plan of Treatment Upcoming Encounters Date Type Department Care Team (Late st Contact Info) Description 09/26/2024 7:20 AM CDT Office Visit [facility] Family Medicine - [address], [address] [place] [address] Ingrid VII, Milo Parada MD [address] [place] [address], [address] [place] [address] Health Maintenance Due Date Last Done Comments [...] 07/29/2023 Hepatitis C Completed 10/08/2022 PHQ-2 (Physician [employer]) Completed 04/28/2024 Meningococcal B Vaccine Aged Out No l onger eligible based on patient's age to complete this topic Meningococcal Vaccine Aged Out No chuyita ryley eligible based on patient's age to complete this topic RSV Immunizations Under 20 Months Aged Out No longer eligible b ased on patient's age to complete this topic Medical Devices Implanted Type Area Credit Interviewer Device Identifier Shelf Expiration Date Model / Serial / Lot Ear Ear Right: Ear Description:Ear bone Hip Components Hip Components Left: Hip Tube Ear Blue 12mm 1.14mm 9.8mm T Tympanic-2022 Implanted:Qty: 1 on 06/20/2022 by Hoang Garcia MD Tube Implant Ear Simpler 446 / / [id number] Procedures Procedure Name Priority Date/Time Associated Diagnosis [...] HEPATITIS C AB NON-REACT OCTAVIO NON-REACT OCTAVIO [employer] [facility] Comment: HCV antibody was non-reactive. There is no laboratory evidence of HCV infection. In most cases, no further action is required. However, if recent HCV exposure is suspected, a test for HCV RNA (test code 62522) is suggested. For additional information please refer to http://education.PFI Acquisition/faq/CIT92z3 (This link is being provided for informational/ educational purposes only.) 10/08/2022 9:04 AM CDT 10/09/2022 3:11 AM CDT Narrative Resulting Agency Comment Performing Organization Information: Site ID: [place] Name: [employer] Address: [address] [place] [address] Director: Carmen Cole MD us Vale Salmon [facility] Final Re sult [employer] [facility] CO-Value [facility] [id number] [place] [phone], from Last 3 Months or Most Recently Relevant to Health Maintenance Insurance [facility] [place] [id number] [facility] Advance Directives Documents on File Type Date Recorded Patient Supervisor [place] Expl anation Legal Documents 05/01/2022 8:40 AM COMPLETE D ATTNY REQ Care Teams System Consultant Relationship Specialty Start Date End Date Ingrid VII, Milo Parada MD [address] [place], [place] [address] PCP - General FAMILY PRACTICE 01/27/24
--- OUTSIDE RECORDS SUMMARY | 2024-07-15 03:58 | XMS_ITS | Referral Summary ---
Author Organization [facility] Address [address] [place] [address] Care Team Providers Care Client Integration Manager Name Role Phone Ananth Alvarado MD Unavailable [phone] Korin Monteiro MD Primary Care Provider [phone] Allergies No known active allergies Medications cholecalciferol [...] on file Medical Devices Implanted Type Area Cnc Maintenance Mechanic Device Identifier Shelf Expiration Date Model / Serial / Lot Implantech Alliedsil 3x2in Nonreinforced Permanent Implantable Thk.04in - [id number] Implanted:Qty: 1 on 12/27/2021 by Hoang Garcia MD at [facility] Right: Ear Implantech [id number] 08/29/2026 / / [id number] [facility] [place] Prosthesis Ossicular 655 - [id number] Implanted:Qty: 1 on 06/20/2022 by Hoang Garcia MD at [facility] Right: Ear [employer] [id number] 04/23/2027 655 / / [id number] Insurance [facility] [employer] [employer]PPO Address: [place] [id number] [facility] [employer]/[employer]O Address: [address] [address] Care Teams Client Integration Manager Relationship Specialty Start Date End Date Korin Monteiro MD [address] [place] [address] PCP - General Family Practice 11/09/23 Ananth Alvarado MD [address] [place] [address] Referring Physician Otolaryngology 11/19/21
--- OUTSIDE RECORDS SUMMARY | 2024-07-15 03:58 | XMS_ITS | Encounter Summary ---
Author Organization [facility] Address [facility] [place] [address] Care Team Providers Care Rn Maternity Name Role Phone Terese Hathaway Primary Care Provider [phone] Vale SalmonP- Primary Care Provider + Korin Monteiro MD Primary Care Provider [phone] IngridMilo Grady MD Primary Care Prov ider Encounter Details Date Type Department Care Team (Late st Contact Info) Description 08/27/2021 [place] [employer] Message Enc [facility] Family & Internal Medicine [address] [address] [place], [facility] Provider Appointment Social History Tobacco [...] Assigned at Male 03/04/2018 2:26 PM CUSTOMER DEVELOPMENT MANAGER Legal Sex Male 4:33 PM CDT Gender Identity Male 03/04/2018 2:26 PM CUSTOMER DEVELOPMENT MANAGER Sexual Orientation Straight 03/04/2018 2: 26 PM CUSTOMER DEVELOPMENT MANAGER documented as of this encounter Plan of Treatment Upcoming Encounters Date Type Department Care Team (Late st Contact Info) Description 09/26/2024 7:20 AM CDT Office Visit [facility] Family [place] - [place], [address] [place] [address] Milo Negro MD [address] [place] [address] documented as of this encounter Visit Diagnoses Not on filedocumented in this encounter Additional Health Concerns Infection Onset Date Last Indicated Resolved Time COVID-19 Rule Out 12/10/2023 12/10/2023 12/10/2023 11:34 AM CDT documented as of this encounter Care Teams Rn Maternity Relationship Specialty [place] [address] [place] [address] PCP - General PHYSICIAN CLINICAL PROVIDER TRAINER 02/01/20 10/05/22 Vale Salmon, [facility]- [address] [address], [address] [address] PCP - General 10/06/22 02/09/23 [place] [address] [address], [address] [address] PCP - General FAMILY PRACTICE 02/10/23 01/26/24 Milo Negro MD [address] [place] [address], [address] [address] PCP - General FAMILY PRACTICE 01/27/24 documented as of this encounter
--- OUTSIDE RECORDS SUMMARY | 2024-07-15 03:58 | XMS_ITS | Encounter Summary ---
Author Organization [facility] Address [facility] [place] [address] Care Team Providers Care Cow Tester Name Role Phone Terese Hathaway Primary Care Provider [phone] Vale Salmon [facility] Primary Care Provider + Korin Monteiro MD Primary Care Provider [phone] IngridMilo Grady MD Primary Care Prov ider Encounter Details Date Type Department Care Team (Late st Contact Info) Description 11/21/2021 MyChart Message Enc [facility] Family & Internal Medicine [facility] [address] [place] [address] Terese [place] [id number] [place] [address] Social History Tobacco Use [...] Assigned at Male 03/04/2018 2:26 PM SENIOR RADIATION THERAPIST Legal Sex Male 4:33 PM CDT Gender Identity Male 03/04/2018 2:26 PM SENIOR RADIATION THERAPIST Sexual Orientation Straight 03/04/2018 2: 26 PM SENIOR RADIATION THERAPIST COVID-19 Exposure Response Date Recorded In the last 10 days, have yo u been in contact with someone who was confirmed or suspected to have Coronavirus/COVID-19? No / Unsure 11/21/2021 6:58 AM CDT documented as of this encounter Plan of Treatment Upcoming Encounters Date Type Department Care Team (Late st Contact Info) Description 09/26/2024 7:20 AM CDT Office Visit [facility] Family Medicine [address], [address] [address] Ingrid VII, Milo Parada MD [address] [place] [address], [address] [address] documented as of this encounter Visit Diagnoses Not on filedocumented in this encounter Additional Health Concerns Infection Onset Date Last Indicated Resolved Time COVID-19 Rule Out 12/10/2023 12/10/2023 12/10/2023 11:34 AM CDT Assessment Noted Time PHQ-9 Depression Total Score: 1 10/03/19 22 4:03 PM CDT documented as of this encounter Care Teams Cow Tester Relationship Specialty Start [place] [address] [facility] [place] [address] PCP - General PHYSICIAN SR. PRICING ANALYST 02/01/20 10/05/22 Vale Salmon, MACHINE WOOD SANDER- [address] [facility], [address] [address] PCP - General 10/06/22 02/09/23 [place] [address] [address], [address] [place] [address] PCP - General FAMILY PRACTICE 02/10/23 01/26/24 Milo Negro MD [address] [place] [id number] PCP - General FAMILY PRACTICE 01/27/24 documented as of this encounter
[2024-07-15] MEDS: ACETAMINOPHEN 500 MG TABLET 1000 MG PO (04:02)
[2024-07-15] MEDS: KETOROLAC 15 MG/ML VIAL (*BKC) IV PUSH (04:02)
--- NOTE | 2024-07-15 04:44 | ED.GENADULT ---
HPI - General Adult General Chief complaint: Back Pain/Injury Stated complaint: R flank pain, pain with urination Time Seen by Provider: 07/15/24 03:10 History of Present Illness HPI narrative: This is a 54-year-old male presenting ED with chief complaint left flank pain. It has been going on for last 2 weeks but became severe today. Is a sharp pain in his left side radiating to his groin. Patient is having difficulty urinating. He has increased frequency but no urgency or dysuria. He denies fevers chills nausea vomiting or diarrhea. Related Data Home Medications ?Medication ?Instructions ?Recorded ?Confirmed ?Last Taken ?Type hydrochlorothiazide 12.5 mg tablet mg 05/21/24 Unknown History lisinopril 10 mg tablet mg 05/21/24 Unknown History Allergies Allergy/AdvReac Type Severity Reaction Status Date / Time No Known Allergies Allergy Verified 07/15/24 02:51 Exam Narrative: APPEARANCE: Patient appears uncomfortable Head: atraumatic. EYES: EOMI, NOSE: Atraumatic NECK: Trachea midline RESPIRATORY: No increased rate of breathing CTAB CARDIOVASCULAR: RRR, ABDOMINAL: Non-distended soft nontender no guarding rebound, no CVA tenderness MUSCULOSKELETAl: No obvious deformities NEURO: Alert. Moving 4/4 extremities SKIN:: Warm, dry. Normal color PSYCHIATRIC: Normal affect Course Vital Signs Vital signs: Vital Signs Temperature 97.1 F L 07/15/24 02:58 Pulse Rate 72 07/15/24 02:58 Respiratory Rate 19 07/15/24 02:58 Blood Pressure 130/85 07/15/24 02:58 Pulse Oximetry 98 07/15/24 02:58 Oxygen Delivery Room Air 07/15/24 02:58 Temperature 97.1 F L 07/15/24 02:58 Pulse Rate 72 07/15/24 02:58 Respiratory Rate 19 07/15/24 02:58 Blood Pressure 130/85 07/15/24 02:58 Pulse Oximetry 98 07/15/24 02:58 Oxygen Delivery Room Air 07/15/24 02:58 Medical Decision Making [facility] Narrative Medical decision making narrative: -Course: 54-year-old male presenting with left flank pain. Find have a 2 mm stone in the distal ureter. White count is normal. No fevers. Urine is not indicative of infection. Pain was controlled in the ED with Dilaudid, Toradol and Tylenol. He will be discharged with appropriate medications given Urology follow-up. Given return precautions for infection. -DDX includes but is not limited to: Kidney stone, UTI, pyelonephritis, muscle strain Vital Signs Vital Signs: Vital Signs Temperature 97.1 F L 07/15/24 02:58 Pulse Rate 72 07/15/24 02:58 Respiratory Rate 19 07/15/24 02:58 Blood Pressure 130/85 07/15/24 02:58 Pulse Oximetry 98 07/15/24 02:58 Oxygen Delivery Room Air 07/15/24 02:58 Temperature 97.1 F L 07/15/24 02:58 Pulse Rate 72 07/15/24 02:58 Respiratory Rate 19 07/15/24 02:58 Blood Pressure 130/85 07/15/24 02:58 Pulse Oximetry 98 07/15/24 02:58 Oxygen Delivery Room Air 07/15/24 02:58 Lab Data 07/15/24 03:13 07/15/24 03:13 Labs: Lab Results 07/15/24 Range/Units 03:13 WBC 7.6 (4.5-10.0) K/mm3 RBC 4.89 (4.6-6.20) M/mm3 Hgb 15.7 (14.0-18.0) g/dL Hct 46.2 (42.0-52.0) % MCV 94.5 (80-100) fl MCH 32.1 (26-34) pg MCHC 34.0 (32-36) g/dl RDW 13.1 (11.5-14.5) % Plt Count 235 (150-375) k/mm3 MPV 10.2 (7.4-10.4) fl Immature Gran % (Auto) 0.1 (0-0.5) % Neut % (Auto) 42.2 L (45.5-73.1) % Lymph % (Auto) 40.8 (18.3-44.2) % [place] % (Auto) 12.2 H (2.6-8.5) % Eos % (Auto) 4.2 (0-4.4) % Baso % (Auto) 0.5 (0.2-1.2) % Lymph # (Auto) 3.11 (0.9-3.2) K/mm3 [place] # (Auto) 0.9 H (0.1-0.6) K/mm3 Eos # (Auto) 0.3 (0-0.3) K/mm3 Baso # (Auto) 0.0 (0.0-0.1) K/mm3 Abs Immat Gran (auto) 0.01 (0.00-0.031) K/mm3 Absolute Neuts (auto) 3.2 (1.3-6.7) K/mm3 Absolute Nucleated RBC 0.000 (0.0-0.012) K/mm3 Nucleated RBC % 0.0 (0.0-0.2) % Sodium 138 (137-145) mmol/L Potassium 3.4 (3.4-5.0) mmol/L Chloride 102 (98-107) mmol/L Carbon Dioxide 25 (22-30) mmol/L Anion Gap 11 (4-12) mmol/L BUN 17 (9-20) mg/dL Creatinine 0.91 (0.7-1.3) mg/dL Estim Creat Clear Calc 108 ml/min Estimated GFR > 60 (59 - ) Glucose 110 (65-110) mg/dL Calcium 9.0 (8.4-10.2) mg/dL Total Bilirubin 0.7 (0.2-1.3) mg/dL AST 24 (17-59) U/L ALT 27 (6-50) U/L Alkaline Phosphatase 67 (38-126) U/L Total Protein 7.0 (6.3-8.2) g/dL Albumin 4.4 (3.5-5.1) g/dL Urine Color Yellow (Yellow) Urine Appearance Clear (Clear) Urine pH 5.5 (5.0-9.0) Ur Specific Henderson 1.028 (1.001-1.035) Urine Protein 1+ H (Negative) mg/dL Urine Glucose (UA) Negative (Negative) mg/dL Urine Ketones Negative (Negative) mg/dL Ur Blood (Man) 3+ H (Negative) Urine Nitrate Negative (Negative) Urine Bilirubin Negative (Negative) Urine Urobilinogen 1.0 (<2.0) mg/dL Add Ur Microanalysis Reviewed Leukocyte Esterase Rfl Negative (Negative) VALERIE/UL Urine RBC 51-100 H (0-2) /hpf Urine WBC 0-5 (0-3) /hpf Ur Squamous Epith Cells None seen (Few) /hpf Urine Bacteria None seen /hpf Urine Casts 0-2 Urine Mucus Present /lpf Urine Yeast (Budding) Present H (None) /hpf Discharge Plan Discharge Clinical Impression: Kidney stone Patient Disposition: Home Condition: Stable Instructions: Antibiotic Form, Kidney Stones (ED) Additional Instructions: You were seen in the emergency department for a kidney stone. Please use Motrin/Tylenol for pain. Use oxycodone for breakthrough pain. Use Zofran for nausea. Use Flomax to help pass the stone Please follow-up with your Urologist for further management. Please return if you develop severe pain, fevers or intractable nausea and vomiting. Patient Language: Faroese Prescriptions: New tamsulosin [Flomax] 0.4 mg capsule 0.4 mg PO DAILY Qty: 30 0RF acetaminophen 500 mg tablet 1,000 mg PO TID PRN (Reason: hermila) 7 Days Qty: 42 0RF ibuprofen 800 mg tablet 800 mg PO TID PRN (Reason: pain) 7 Days Qty: 21 0RF ondansetron 4 mg tablet,disintegrating 4 mg PO Q8H PRN (Reason: nausea and vomiting) Qty: 30 0RF oxycodone 5 mg tablet 5 mg PO Q4H PRN (Reason: pain) Qty: 14 0RF No Action albuterol sulfate [Ventolin HFA] 90 mcg/actuation HFA aerosol inhaler 2 puff inhalation QID PRN (Reason: shortness of breath or wheezing) Qty: 8.5 0RF lisinopril 10 mg tablet hydrochlorothiazide 12.5 mg tablet benzonatate 200 mg capsule 200 mg PO TID PRN (Reason: cough) Qty: 20 0RF prednisone 50 mg tablet 50 mg PO DAILY Qty: 5 0RF Follow-up/Referrals: PHYSICIAN NOT ON STAFF,NONSTAFF [Primary Care Provider] - Juno Lopes MD [Physician] - 1 Week (kidney stone )
== END 2024-07-15 04:56 | disposition home or self-care (01) ==
PROVIDERS: Emergency Provider Emergency Medicine
DX: N20.0 Calculus of kidney (principal)
CPT/HCPCS: 36415; 74176; 80053; 81001; 85025; 96374; 96375; 99284; A9270; J1171; J1885; J2405